=== PATIENT | female | born 1955 | race Caucasian/White ===

== ENCOUNTER → 2018-03-06 11:21 | Outpatient (CLI) | payer OTHER, SELFPAY ==
--- NOTE | 2018-03-06 11:25 | DI.RAD.S_ITS ---
PROCEDURE: XR CHEST 2V INDICATIONS: 62 year-old female with dyspnea for one month. TECHNIQUE: 2 views of the chest were acquired. COMPARISON: [facility], CR, CHEST 2 VIEW, 09/12/2013, 10:53. [facility], CR, CHEST 1VW (PORTABLE), 03/02/2012, 13:17. [facility], CR, CHEST 2 VIEW, 01/05/2011, 12:30. FINDINGS: Surgical changes and devices: Patient is status post interval resection of right midlung mass, with resection kell present. Cholecystectomy clips are again noted. Lungs and pleura: No pleural effusions or pneumothorax. Lungs are clear. Mediastinum: Mediastinal contours are normal. Heart size is normal. Bones and chest wall: No suspicious bony abnormalities. Lower thoracic spine dextroscoliosis is again noted. Soft tissues appear unremarkable. IMPRESSION: No acute cardiopulmonary disease, status post interval resection of right midlung mass. Dictated by: Meng Rios M.D. on 03/06/2018 at 12:24 Approved by: Meng Rios M.D. on 03/06/2018 at 12:26
[2018-03-06 12:38] LABS: Add Manual Diff / Slide Review NO; Basophils Percent Auto 0.4 % (0-2); Eosinophils Percent Auto 1.1 % (2-4); Hematocrit 35.5 % (36-46); Hemoglobin 12.1 g/dL (12.0-16.0); Lymphocytes Percent Auto 28.1 % (25-40); Mean Corpuscular Hemoglobin 30.8 PG (26-34); Mean Corpuscular Volume 90.5 fL (80-100); Monocytes Percent Auto 7.6 % (3-14); Neutrophils Absolute Auto 4200 /uL (3000-5900); Neutrophils Percent Auto 62.8 % (50-75); Platelet Count 190 X10^3/uL (150-400); Red Blood Cell Count 3.92 X10^6/uL (4.0-5.2); Red Cell Distribution Width 13.6 % (11.6-14.8); White Blood Cell Count 6.6 X10^3/uL (4.5-11.0)
[2018-03-06 12:52] LABS: D Dimer < 200 ng/mL (<230)
[2018-03-06 12:57] LABS: Alanine Aminotransferase 35 IU/L (9-52); Albumin 4.2 g/dL (3.5-5.0); Albumin Globulin Ratio 1.3 (1.0-2.8); Alkaline Phosphatase 83 U/L (38-126); Aspartate Aminotransferase 21 IU/L (14-36); BUN Creatinine Ratio 15.6 (6-22); Bilirubin Total 0.5 mg/dL (0.2-1.3); Blood Urea Nitrogen 14 mg/dL (7-17); Carbon Dioxide 26 mmol/L (22-32); Chloride 105 mmol/L (98-107); Estimated Glomerular Filt Rate > 60.0 mL/min (>60); Globulin 3.2 g/dL (1.7-4.1); Glucose 100 mg/dL (80-110); HEMOLYSIS < 15 (0-50); Potassium 4.2 mmol/L (3.4-5.1); Sodium 142 mmol/L (137-145); Total Protein 7.4 g/dL (6.3-8.2)
[2018-03-06 13:30] LABS: Thyroid Stimulating Hormone 0.56 uIU/mL (0.47-4.68)
== END ==
PROVIDERS: PCP Internal Medicine; Visit Provider Internal Medicine
DX: Z98.890 Other specified postprocedural states (principal); R06.00 Dyspnea, unspecified
CPT/HCPCS: 36415; 71046; 80053; 83880; 84443; 85025; 85379

== ENCOUNTER → 2018-03-13 12:36 | Outpatient (CLI) | payer OTHER, SELFPAY ==
--- NOTE | 2018-03-13 12:38 | DI.ECHO.S_ITS ---
[facility] +---------+ : : [address] : : [place], [place] : : : : [id number] : : : : Phone: [phone]+ Echocardiogram Report + + :Name: IDANIA HORTON Study Date: 03/13/2018 Height: 68 in : :[facility] Exam Location: [facility] Weight: 170 lb : : Gender: Female BSA: 1.9 m2 : :: 1955 Age: 62 yrs BP: 140/80 mmHg: :Reason For Study: Dyspnea : : Performed By: Catia Page : :Referring: ARNOLDO DENNIS : + + Interpretation Summary Left ventricular systolic function is borderline reduced with the ejection fraction visually estimated to be 45-55% with considerable [id number] variability because of the rapid atrial fibrillation but no obvious focal wall motion abnormalities. Systolic function appears slightly lower compared to the previous study. The left ventricle is normal in size. The right ventricle is normal size and right ventricular systolic function is at the lower limits of normal and appears slightly less dynamic compared to the previous study. The right ventricular systolic pressure is estimated at 25 mmHg assuming a right atrial pressure of 3 mm Hg. Both atria are severely dilated and both have significantly increased in size since the prior echo exam. There is mild to moderate mitral regurgitation and moderate tricuspid regurgitation. Both appear more prominent compared to the previous study. The aortic arch is at the upper limits of normal in size. The patient was in atrial fibrillation with heart rates between 84-136 bpm during the exam, generally at the higher end of this range, suggesting inadequate heart rate control. This is new compared to the previous study. Procedure: A two-dimensional transthoracic echocardiogram with color flow and Doppler was performed. The study quality was technically adequate. Prior available with images only on 12/14/2006. The patient was in atrial fibrillation with heart rates between 84-136 bpm during the exam. Left Ventricle: The left ventricle is normal in size. Left ventricular wall thickness is normal. Left ventricular systolic function is borderline reduced. Left ventricular ejection fraction is estimated to be 45-55%. With considerable [id number]-pq-[id number] variability because of the rapid atrial fibrillation. There are no focal wall motion abnormalities. Systolic function appears slightly lower compared to the previous study. Diastolic function could not be accurately assessed due to atrial fibrillation. Right Ventricle: The right ventricle is normal size. Right ventricular systolic function is at the lower limits of normal. This is slightly less dynamic compared to the previous study. Atria: Both atria are severely dilated. Both atria have significantly increased in size since the prior echo exam. There is no Doppler evidence for an interatrial shunt. Mitral Valve: The mitral valve is normal in structure and function. There is mild to moderate mitral regurgitation. This is more prominent compared to the previous study. Aortic Valve: The aortic valve is trileaflet. The aortic valve opens well. No aortic regurgitation is present. Tricuspid Valve: The tricuspid valve is normal in structure and function. There is moderate tricuspid regurgitation. This is more prominent compared to the previous study. The right ventricular systolic pressure is estimated at 25 mmHg assuming a right atrial pressure of 3 mm Hg. Pulmonic Valve: The pulmonic valve is not well visualized. There is a trace or physiologic amount of pulmonic regurgitation. Great Vessels: The aortic root is normal size. The ascending aorta is normal in size. The aortic arch is at the upper limits of normal in size. The pulmonary artery is not well visualized, but is probably normal size. The IVC is of normal diameter and collapses greater than 50% with a sniff. This suggests a low right atrial pressure of 3 mm Hg. Pericardium/ Pleura There is no pericardial effusion. There is no pleural effusion. MMode/2D Measurements & Calculations LVIDd: 5.4 cm LVOT diam: 2.1 cm LVIDs: 4.2 cm Ao root diam: 3.1 cm FS: 21.8 % asc Aorta Diam: 3.0 cm EPSS: 0.84 cm Ao Arch Diam (Prox Trans): 3.0 cm IVSd: 0.79 cm LVPWd: 0.59 cm LV pineda. diameter/BSA (cm/m^2): 2.8 LV sys. diameter/BSA (cm/m^2): 2.2 LA A2 area: 37.0 cm2 RA long axis: 6.6 cm LA A4 area: 30.5 cm2 RA area: 26.7 cm2 LA length (vol): 7.5 cm RA vol: 92.1 ml LA vol: 127.7 ml RA : 48.3 ml/m2 LA vol index: 67.0 ml/m2 IVC diam: 2.0 cm RVD1 (basal): 3.8 cm TAPSE: 2.2 cm Doppler Measurements & Calculations Ao V2 max: 106.3 cm/sec LVOT Max Duke: 75.6 cm/sec Ao V2 mean: 73.6 cm/sec LV V1 max P.3 mmHg Ao max P.5 mmHg LV V1 VTI: 12.2 cm Ao mean P.4 mmHg JJ(I,D): 2.3 cm2 Ao V2 VTI: 18.2 cm JJ(V,D): 2.5 cm2 sev ratio: 0.67 JJ indexed to BSA (cm^2/m^2): 1.2 MV E max duke: 83.9 cm/sec TR max duke: 234.6 cm/sec Lat Peak E' Duke: 12.2 cm/sec TR max P.1 mmHg E/E' lat: 6.9 PA V2 max: 56.7 cm/sec MV P1/2t: 28.6 msec PA V2 mean: 37.2 cm/sec PA mean P.63 mmHg PA Accel Time: 0.13 sec MV P1/2t max duke: 84.9 cm/sec MVA(P1/2t): 7.7 cm2 Reading Physician:RENNY
== END ==
PROVIDERS: PCP Internal Medicine; Visit Provider Internal Medicine
DX: R06.00 Dyspnea, unspecified (principal)
CPT/HCPCS: 93306

== ENCOUNTER → 2018-03-30 14:17 | Outpatient (CLI) | payer OTHER, SELFPAY ==
[2018-03-30 17:34] LABS: Prothrombin Time 11.4 SECONDS (10.1-12.7)
== END ==
PROVIDERS: PCP Internal Medicine; Visit Provider Internal Medicine
DX: Z51.81 Encounter for therapeutic drug level monitoring (principal); Z79.01 Long term (current) use of anticoagulants
CPT/HCPCS: 36415; 85610

== ENCOUNTER → 2018-05-23 09:19 | Outpatient (CLI) | payer OTHER, SELFPAY ==
--- NOTE | 2018-06-08 10:08 | P.HOLT.S_ITS ---
Adult And Pediatric Neurologist Report Referral & Results Date Patient Seen: 05/23/18 Requesting provider: Danyel Kate Indication: Atrial fibrillation Duration of monitoring (days): 3 Diary information: There was 1 patient diary entry associated with atrial fibrillation and PVCs There is 1 triggered events associated with atrial fibrillation and PVCs Data: Patient was in atrial fibrillation for the duration of the study Minimum heart rate was 45 beats per minute at 11:20 on 05/25/2018 Maximum heart rate was 179 beats per minute at 15:09 on 05/23/2018 Less than 1% of identified beats were PVCs or ventricular ectopic in origin Impression: Patient with persistent atrial fibrillation. Overall rate control appears to be adequate with a pattern of increased heart rate in the late afternoon question related to exercise. Overall heart rates average between 60 and 120 beats per minute Clinical correlation suggested
== END ==
PROVIDERS: PCP Internal Medicine; Visit Provider Internal Medicine
DX: I48.91 Unspecified atrial fibrillation (principal)
CPT/HCPCS: 0296T; 0298T

== ENCOUNTER → 2018-09-25 11:56 | Outpatient (CLI) | payer OTHER, SELFPAY ==
[2018-09-25 13:16] LABS: Add Manual Diff / Slide Review NO; Basophils Absolute Auto 0 /uL (0-100); Basophils Percent Auto 0.2 % (0-2); Eosinophils Absolute Auto 0 /uL (0-450); Eosinophils Percent Auto 0.6 % (2-4); Hemoglobin 13.2 g/dL (12.0-16.0); Lymphocytes Absolute Auto 2200 /uL (1100-4500); Lymphocytes Percent Auto 32.5 % (25-40); Mean Corpuscular Volume 91.2 fL (80-100); Monocytes Absolute Auto 400 /uL (0-900); Monocytes Percent Auto 6.2 % (3-14); Neutrophils Absolute Auto 4200 /uL (1500-7000); Neutrophils Percent Auto 60.5 % (50-75); Platelet Count 173 X10^3/uL (150-400); Red Blood Cell Count 4.38 X10^6/uL (4.0-5.2); Red Cell Distribution Width 13.3 % (11.6-14.8); White Blood Cell Count 6.9 X10^3/uL (4.5-11.0)
[2018-09-25 13:24] LABS: Alanine Aminotransferase 35 IU/L (9-52); Albumin 4.5 g/dL (3.5-5.0); Albumin Globulin Ratio 1.5 (1.0-2.8); Alkaline Phosphatase 73 U/L (38-126); Aspartate Aminotransferase 21 IU/L (14-36); Bilirubin Total 0.5 mg/dL (0.2-1.3); Bilirubin Unconjugated 0.4 mg/dL (0.0-1.1); Creatine Kinase 41 U/L (30-135); Gamma Glutamyl Transpeptidase 23 U/L (12-43); HEMOLYSIS < 15 (0-50); Magnesium 1.8 mg/dL (1.6-2.3); Total Protein 7.5 g/dL (6.3-8.2)
[2018-09-25 13:35] LABS: B Type Natriuretic Peptide 417 (<100)
[2018-09-25 14:13] LABS: Vitamin B12 837 pg/mL (239-931)
[2018-09-25 14:58] LABS: Free T4, Direct Thyroxine 1.36 ng/dL (0.78-2.19)
[2018-09-25 15:12] LABS: Thyroid Stimulating Hormone 0.63 uIU/mL (0.47-4.68)
[2018-09-25 15:19] LABS: Vitamin D 25 Hydroxy (D3) 50.9 ng/mL (30.0-100.0)
== END ==
PROVIDERS: PCP Student in an Organized Health Care Education/Training Program; Visit Provider Student in an Organized Health Care Education/Training Program
DX: M62.81 Muscle weakness (generalized) (principal); E55.9 Vitamin D deficiency, unspecified; R53.83 Other fatigue; R10.9 Unspecified abdominal pain; M79.10 Myalgia, unspecified site
CPT/HCPCS: 36415; 80076; 82306; 82550; 82607; 82977; 83735; 83880; 84439; 84443; 85025

== ENCOUNTER → 2018-11-14 11:36 | Outpatient (CLI) | payer OTHER, SELFPAY ==
--- NOTE | 2018-11-14 | DI.MG.S_ITS ---
BILATERAL DIGITAL SCREENING MAMMOGRAM 3D/2D WITH CAD: 11/14/2018 CLINICAL: Routine screening. Family history of breast cancer. Comparison is made to exams dated: 11/27/2017 mammogram, 10/30/2017 mammogram, and 10/17/2017 mammogram - [facility]. The tissue of both breasts is heterogeneously dense. This may lower the sensitivity of mammography. Current study was also evaluated with a Computer Aided Detection (CAD) system. There is a benign biopsy clip in the right breast. No significant masses, calcifications, or other findings are seen in either breast. There has been no significant interval change. IMPRESSION: NEGATIVE There is no mammographic evidence of malignancy. A 1 year screening mammogram is recommended. This exam was interpreted at Station ID: [id number]. NOTE: For mammograms, a report in lay terms will be sent to the patient. Approximately 15% of breast malignancies will not be visualized mammographically. In the management of a palpable breast mass, a negative mammogram must not discourage biopsy of a clinically suspicious lesion. Electronically Signed By: Brandon barton/nadeem:11/14/2018 17:33:07 letter sent: Normal Exam ACR BI-RADS Category 1: Negative [id number]
== END ==
PROVIDERS: PCP Student in an Organized Health Care Education/Training Program; Visit Provider Student in an Organized Health Care Education/Training Program
DX: Z12.31 Encounter for screening mammogram for malignant neoplasm of breast (principal); Z80.3 Family history of malignant neoplasm of breast
CPT/HCPCS: 77063; 77067

== ENCOUNTER → 2019-02-11 11:18 | Outpatient (CLI) | payer OTHER, SELFPAY ==
[2019-02-11 13:00] LABS: BUN Creatinine Ratio 13.3 (6-22); Blood Urea Nitrogen 12 mg/dL (7-17); Calcium 9.3 mg/dL (8.4-10.2); Carbon Dioxide 30 mmol/L (22-32); Chloride 104 mmol/L (98-107); Estimated Glomerular Filt Rate > 60.0 mL/min (>60); Glucose 110 mg/dL (80-110); HEMOLYSIS < 15 (0-50); Potassium 4.5 mmol/L (3.4-5.1); Sodium 140 mmol/L (137-145)
[2019-02-11 13:08] LABS: Digoxin 0.9 ng/mL (0.8-2.0)
== END ==
PROVIDERS: PCP Student in an Organized Health Care Education/Training Program; Visit Provider Internal Medicine Cardiovascular Disease
DX: I48.1 Persistent atrial fibrillation (principal)
CPT/HCPCS: 36415; 80048; 80162

== ENCOUNTER → 2019-06-27 19:07 | Outpatient (CLI) | payer OTHER, SELFPAY | PROVIDERS: PCP Student in an Organized Health Care Education/Training Program; Visit Provider Student in an Organized Health Care Education/Training Program | DX: S39.92XA Unspecified injury of lower back, initial encounter (principal); M79.10 Myalgia, unspecified site; Z53.9 Procedure and treatment not carried out, unspecified reason ==

== ENCOUNTER → 2019-07-05 11:46 | Outpatient (CLI) | payer OTHER, SELFPAY ==
[2019-07-05 12:17] LABS: Hematocrit 38.1 % (36-46); Mean Corpuscular HGB Conc 34.2 % (30-36); Mean Corpuscular Hemoglobin 31.2 PG (26-34); Mean Corpuscular Volume 91.4 fL (80-100); Platelet Count 184 X10^3/uL (150-400); Red Blood Cell Count 4.16 X10^6/uL (4.0-5.2); Red Cell Distribution Width 12.9 % (11.6-14.8)
[2019-07-05 12:33] LABS: BUN Creatinine Ratio 14.5 (6-22); Blood Urea Nitrogen 16 mg/dL (7-17); Calcium 9.5 mg/dL (8.4-10.2); Carbon Dioxide 28 mmol/L (22-32); Chloride 103 mmol/L (98-107); Creatine Kinase 63 U/L (30-135); Estimated Glomerular Filt Rate 49.8 mL/min (>60); Glucose 95 mg/dL (80-110); HEMOLYSIS < 15 (0-50); Magnesium 1.9 mg/dL (1.6-2.3); Potassium 4.1 mmol/L (3.4-5.1); Sodium 141 mmol/L (137-145)
[2019-07-05 12:34] LABS: C-Reactive Protein Quant < 0.5 mg/dL (<1.0); Rheumatoid Factor < 8.6 IU/mL (<12.0)
[2019-07-05 13:06] LABS: Erythrocyte Sedimentation Rate 18 MM/HR (0-20)
[2019-07-05 13:14] LABS: Free T3, Triiodothyronine Free 3.25 pg/mL (2.77-5.27); Free T4, Direct Thyroxine 1.39 ng/dL (0.78-2.19)
[2019-07-05 13:28] LABS: Thyroid Stimulating Hormone 1.09 uIU/mL (0.47-4.68)
[2019-07-09 10:46] LABS: CCP Antibody (IgG) < 16 Units (< 20)
[2019-07-09 16:39] LABS: ANA Screen, IFA POSITIVE (NEGATIVE)
== END ==
PROVIDERS: PCP Student in an Organized Health Care Education/Training Program; Visit Provider Student in an Organized Health Care Education/Training Program
DX: E03.9 Hypothyroidism, unspecified (principal); E88.01 Alpha-1-antitrypsin deficiency; I10 Essential (primary) hypertension; M79.10 Myalgia, unspecified site; R20.2 Paresthesia of skin
CPT/HCPCS: 36415; 80048; 82550; 83735; 84439; 84443; 84481; 85027; 85651; 86038; 86140; 86200; 86430

== ENCOUNTER → 2019-07-19 13:53 | Outpatient (CLI) | payer OTHER, SELFPAY ==
[2019-07-19 15:37] LABS: Alanine Aminotransferase 22 IU/L (<35); Albumin 4.3 g/dL (3.5-5.0); Albumin Globulin Ratio 1.6 (1.0-2.8); Alkaline Phosphatase 106 U/L (38-126); Aspartate Aminotransferase 24 IU/L (14-36); BUN Creatinine Ratio 16.3 (6-22); Bilirubin Total 0.5 mg/dL (0.2-1.3); Blood Urea Nitrogen 13 mg/dL (7-17); Calcium 9.6 mg/dL (8.4-10.2); Carbon Dioxide 30 mmol/L (22-32); Chloride 103 mmol/L (98-107); Estimated Glomerular Filt Rate > 60.0 mL/min (>60); Globulin 2.7 g/dL (1.7-4.1); Glucose 96 mg/dL (80-110); HEMOLYSIS < 15 (0-50); Potassium 3.7 mmol/L (3.4-5.1); Sodium 140 mmol/L (137-145)
[2019-07-19 15:39] LABS: Digoxin 0.5 ng/mL (0.8-2.0)
== END ==
PROVIDERS: PCP Student in an Organized Health Care Education/Training Program; Visit Provider Internal Medicine Cardiovascular Disease
DX: I48.19 Other persistent atrial fibrillation (principal)
CPT/HCPCS: 36415; 80053; 80162

== ENCOUNTER → 2019-12-21 12:15 | Outpatient (CLI) | payer MEDICARE, OTHER, SELFPAY ==
[2019-12-21 12:57] LABS: Blood Urea Nitrogen 23 mg/dL (7-17); Carbon Dioxide 26 mmol/L (22-32); Chloride 102 mmol/L (98-107); Estimated Glomerular Filt Rate 55.6 mL/min (>60); Glucose 118 mg/dL (80-110); HEMOLYSIS < 15 (0-50); Sodium 138 mmol/L (137-145)
== END ==
PROVIDERS: PCP Student in an Organized Health Care Education/Training Program; Referring Provider Hospitalist; Visit Provider Hospitalist
DX: I10 Essential (primary) hypertension (principal)
CPT/HCPCS: 36415; 80048

== ENCOUNTER → 2020-02-18 12:45 | Outpatient (CLI) | payer MEDICARE, OTHER, SELFPAY ==
--- NOTE | 2020-02-18 12:48 | DI.RAD.S_ITS ---
PROCEDURE: FL BARIUM SWALLOW INDICATIONS: esophageal dysphagia COMPARISON: None. FINDINGS: Function: There is decreased esophageal peristalsis. Delayed esophageal clearance No elicited gastroesophageal reflux. There is normal transit of a calibrated barium tablet through the esophagus into the stomach. Morphology: Air-contrast images demonstrate normal mucosal morphology. Single contrast views show no esophageal strictures, extrinsic mass effects, or diverticula. Limited images of the stomach demonstrate normal appearance. IMPRESSION: Esophageal dysmotility Dictated by: Deejay Burkett M.D. on 02/18/2020 at 14:21 Approved by: Deejay Burkett M.D. on 02/18/2020 at 14:31
== END ==
PROVIDERS: PCP Student in an Organized Health Care Education/Training Program; Referring Provider Student in an Organized Health Care Education/Training Program; Visit Provider Student in an Organized Health Care Education/Training Program
DX: R13.10 Dysphagia, unspecified (principal); K22.4 Dyskinesia of esophagus
CPT/HCPCS: 74220

== ENCOUNTER → 2020-04-07 12:26 | Outpatient (CLI) | payer MEDICARE, OTHER, SELFPAY ==
[2020-04-07 13:23] LABS: Blood Urea Nitrogen 18 mg/dL (7-17); Calcium 9.9 mg/dL (8.4-10.2); Carbon Dioxide 31 mmol/L (22-32); Chloride 99 mmol/L (98-107); Estimated Glomerular Filt Rate > 60.0 mL/min (>60); Glucose 100 mg/dL (80-110); HEMOLYSIS < 15 (0-50); Potassium 3.2 mmol/L (3.4-5.1); Sodium 137 mmol/L (137-145)
== END ==
PROVIDERS: PCP Student in an Organized Health Care Education/Training Program; Referring Provider Hospitalist; Visit Provider Hospitalist
DX: I10 Essential (primary) hypertension (principal)
CPT/HCPCS: 36415; 80048

== ENCOUNTER → 2020-05-23 11:17 | Outpatient (CLI) | payer MEDICARE, OTHER, SELFPAY ==
[2020-05-23 12:29] LABS: BUN Creatinine Ratio 20.2 (6-22); Blood Urea Nitrogen 20 mg/dL (7-17); Calcium 9.6 mg/dL (8.4-10.2); Carbon Dioxide 31 mmol/L (22-32); Chloride 102 mmol/L (98-107); Estimated Glomerular Filt Rate 56.3 mL/min (>60); Glucose 91 mg/dL (80-110); HEMOLYSIS < 15 (0-50); Potassium 3.8 mmol/L (3.4-5.1); Sodium 141 mmol/L (137-145)
== END ==
PROVIDERS: PCP Student in an Organized Health Care Education/Training Program; Referring Provider Internal Medicine Cardiovascular Disease; Visit Provider Internal Medicine Cardiovascular Disease
DX: I48.19 Other persistent atrial fibrillation (principal)
CPT/HCPCS: 36415; 80048

== ENCOUNTER → 2020-05-28 15:58 | Outpatient (CLI) | payer MEDICARE, OTHER, SELFPAY ==
--- NOTE | 2020-05-28 | DI.ECHO.S_ITS ---
[facility] +---------+ [facility] +---------+ : : [address] : : : : [place] : : : : [id number] : : : : Phone: [phone] +---------+ Echocardiogram Report + + :Name: IDANIA HORTON Study Date: 05/28/2020 Height: 67 in : :[facility] Weight: 153 lb : : Gender: Female BSA: 1.8 m2 : :: 1955 Age: 64 yrs BP: 122/95 mmHg: :Reason For Study: Atrial Fibrillation : :Ordering Physician: LEV, : :BONNIE Performed By: Kaleigh Smith : :Referring: BONNIE OHARA : + + Interpretation Summary The patient was in atrial fibrillation with heart rates between 134-167 bpm during the exam. The left ventricle is normal in size. The ejection fraction is estimated to be 25-30%. Left ventricular function has significantly worsened compared to the previous exam. There is severe global hypokinesis of the left ventricle. There is a significant dyssynchronous contraction pattern, consistent with a conduction abnormality. The right ventricle is mildly dilated. Right ventricular systolic function is mildly reduced. Both atria are severely dilated. Both atria have remained unchanged in size since the prior echo exam. There is moderate mitral regurgitation. The tricuspid annulus is dilated. There is severe tricuspid regurgitation. Compared to the prior echo exam, there has been an increase in TR severity. The right ventricular systolic pressure is estimated to be at least 41 mmHg based on an estimated right atrial pressure of 8 mm Hg. Compared to the prior echo exam, there has been an increase in the severity of pulmonary hypertension. Findings were reported to [facility] ER physician. Procedure: A two-dimensional transthoracic echocardiogram with color flow and Doppler was performed in limited views only. The study quality was technically good. Comparison is made with the echocardiogram of 03/13/2018. The patient was in atrial fibrillation with heart rates between 134-167 bpm during the exam. Echo was changed from complete to limited due to Afib w/ RVR and patient was taken to emergency room per Dr. Matute. Left Ventricle: The left ventricle is normal in size. The left ventricle is normal in size and wall thickness. There is no thrombus. The ejection fraction is estimated to be 25-30%. Left ventricular function has significantly worsened compared to the previous exam. There is severe global hypokinesis of the left ventricle. There is a significant dyssynchronous contraction pattern, consistent with a conduction abnormality. Diastolic function could not be accurately assessed due to atrial fibrillation. Right Ventricle: The right ventricle is mildly dilated. Right ventricular systolic function is mildly reduced. Atria: Both atria are severely dilated. Both atria have remained unchanged in size since the prior echo exam. Mitral Valve: The mitral valve leaflets appear mildly thickened, but open well. There is moderate mitral regurgitation. Aortic Valve: The aortic valve is trileaflet. The aortic valve opens well. There is no aortic valve stenosis. Tricuspid Valve: The tricuspid valve leaflets are thin and pliable. The tricuspid annulus is dilated. There is severe tricuspid regurgitation. The right ventricular systolic pressure is estimated to be at least 41 mmHg based on an estimated right atrial pressure of 8 mm Hg. Compared to the prior echo exam, there has been an increase in TR severity. Compared to the prior echo exam, there has been an increase in the severity of pulmonary hypertension. Pulmonic Valve: The pulmonic valve is not well visualized. Great Vessels: The IVC is of normal diameter and collapses less than 50% with a sniff. This suggests a right atrial pressure of 8 mm Hg. Pericardium/ Pleura There is no pericardial effusion. There is no pleural effusion. MMode/2D Measurements & Calculations LVIDd: 4.8 cm LA A2 area: 34.3 cm2 LVIDs: 3.6 cm LA A4 area: 33.6 cm2 FS: 25.0 % LA length (vol): 7.3 cm LVPWd: 4.7 cm LA vol: 134.5 ml LV pineda. diameter/BSA (cm/m^2): 2.6 LA vol index: 74.5 ml/m2 LV sys. diameter/BSA (cm/m^2): 2.0 RA long axis: 6.8 cm RVD1 (basal): 4.1 cm RA area: 31.8 cm2 TAPSE: 1.5 cm RA vol: 125.8 ml RA : 69.7 ml/m2 IVC diam: 1.7 cm Doppler Measurements & Calculations Ao V2 max: 86.2 cm/sec LVOT Max Duke: 63.6 cm/sec Ao V2 mean: 54.0 cm/sec LV V1 max P.6 mmHg Ao max P.0 mmHg LV V1 VTI: 8.9 cm Ao mean P.4 mmHg sev ratio: 0.87 Ao V2 VTI: 10.3 cm TR max duke: 287.0 cm/sec TR max P.9 mmHg Reading Physician:07:40 PM
== END ==
PROVIDERS: PCP Student in an Organized Health Care Education/Training Program; Referring Provider Hospitalist; Visit Provider Hospitalist
DX: I48.19 Other persistent atrial fibrillation (principal); I08.1 Rheumatic disorders of both mitral and tricuspid valves; I27.20 Pulmonary hypertension, unspecified
CPT/HCPCS: 93307

== ENCOUNTER 2020-05-28 16:35 | Emergency (ER) | payer MEDICARE, OTHER, SELFPAY ==
[2020-05-28 16:40] VITALS: BP 152/111; PULSE 164; RESP 15; TEMP 36.4; O2SAT 98; BMI 23.9
--- NOTE | 2020-05-28 17:04 | DI.RAD.S_ITS ---
PROCEDURE: XR CHEST 1V INDICATIONS: chest pain TECHNIQUE: One view of the chest was acquired. COMPARISON: [facility], , CHEST 2 VIEW, 09/12/2013, 10:53. [facility], , XR CHEST 2V, 03/06/2018, 11:16. FINDINGS: Surgical changes and devices: A right midlung staple line is seen. Lungs and pleura: On this semiupright portable chest examination, no large pneumothorax or large pleural effusions are seen. No focal infiltrates are seen. Mediastinum: The cardiac contours are mildly enlarged. The aorta demonstrates calcification and tortuosity. Bones and chest wall: No suspicious bony lesions. Moderate dextroconvex scoliosis is seen. Age-appropriate bony degenerative changes are seen. Overlying soft tissues appear unremarkable. IMPRESSION: Mild cardiomegaly. Prior right lung postoperative change. Moderate scoliosis. Dictated by: Charanjit Bay M.D. on 05/28/2020 at 16:36 Approved by: Charanjit Bay M.D. on 05/28/2020 at 16:37
[2020-05-28 17:12] LABS: Add Manual Diff / Slide Review NO; Basophils Absolute Auto 100 /uL (0-100); Basophils Percent Auto 0.6 % (0-2); Eosinophils Absolute Auto 100 /uL (0-450); Eosinophils Percent Auto 0.9 % (2-4); Hematocrit 40.4 % (36-46); Hemoglobin 13.9 g/dL (12.0-16.0); Lymphocytes Absolute Auto 2600 /uL (1100-4500); Lymphocytes Percent Auto 27.8 % (25-40); Mean Corpuscular HGB Conc 34.3 % (30-36); Mean Corpuscular Hemoglobin 30.8 PG (26-34); Mean Corpuscular Volume 89.7 fL (80-100); Monocytes Absolute Auto 700 /uL (0-900); Monocytes Percent Auto 7.2 % (3-14); Neutrophils Absolute Auto 6000 /uL (1500-7000); Neutrophils Percent Auto 63.5 % (50-75); Platelet Count 165 X10^3/uL (150-400); Red Cell Distribution Width 13.1 % (11.6-14.8); White Blood Cell Count 9.4 X10^3/uL (4.5-11.0)
--- NOTE | 2020-05-28 17:12 | PC.NURSE ---
during echo. pt was noticed to be in afib.[facility] evaluation specialist told pt to come to the er
[2020-05-28 17:16] LABS: INR 1.5 (0.9-1.3); Prothrombin Time 17.6 SECONDS (10.1-12.7)
[2020-05-28 17:19] LABS: PTT Partial Thromboplastin Tim 37 SECONDS (26.4-36.2)
[2020-05-28 17:20] LABS: Alanine Aminotransferase 38 IU/L (<35); Albumin 4.4 g/dL (3.5-5.0); Albumin Globulin Ratio 1.2 (1.0-2.8); Alkaline Phosphatase 148 U/L (38-126); Aspartate Aminotransferase 43 IU/L (14-36); BUN Creatinine Ratio 21.9 (6-22); Bilirubin Total 0.9 mg/dL (0.2-1.3); Blood Urea Nitrogen 23 mg/dL (7-17); Calcium 9.3 mg/dL (8.4-10.2); Carbon Dioxide 30 mmol/L (22-32); Chloride 99 mmol/L (98-107); Creatine Kinase 48 U/L (30-135); Estimated Glomerular Filt Rate 52.6 mL/min (>60); Globulin 3.7 g/dL (1.7-4.1); Glucose 108 mg/dL (80-110); HEMOLYSIS < 15 (0-50); Magnesium 2.1 mg/dL (1.6-2.3); Potassium 3.8 mmol/L (3.4-5.1); Sodium 136 mmol/L (137-145); Total Protein 8.1 g/dL (6.3-8.2)
--- NOTE | 2020-05-28 17:24 | ED_ITS ---
HPI - Arrhythmia/Palpitations General Chief Complaint: Arrhythmia/Palpitations Stated Complaint: AFIB with RVR Time Seen by Provider: 05/28/20 16:48 Source: patient Mode of arrival: Ambulatory Limitations: no limitations History of Present Illness HPI narrative: Patient is a 64-year-old female with history of atrial fibrillation on Eliquis and Coreg presenting in AFib with RVR. She was getting a routine echocardiogram when it they noticed her heart rate was elevated in the 160 she was immediately sent to the emergency department for evaluation. She is completely asymptomatic she denies any chest pain palpitations shortness of breath dizziness lightheadedness. She has multiple reactions to all medications including diltiazem verapamil, metoprolol, Lopressor digoxin and others she is only taking Coreg for her rate control. He is scheduled to see a new truck driver helper she was previously followed by Dr. Hernandez. MD complaint: rapid heart beat Duration: constant Arrhythmia history: atrial fibrillation Associated symptoms: denies other symptoms Related Data Home Medications Medication Instructions Recorded Confirmed Calcium/Vitamin D (#CALCIUM + D 1 tab PO Q DAY #0 04/22/11 02/13/20 600 MG-200 IU) multivitamin 1 cap PO DAILY 03/15/18 02/13/20 valacyclovir 500 mg tablet 500 mg PO BID PRN tab 05/02/19 02/13/20 chlorthalidone 25 mg tablet 12.5 mg PO DAILY tab 02/13/20 02/13/20 losartan 50 mg tablet 25 mg PO DAILY tab 02/13/20 02/13/20 carvedilol 12.5 mg tablet 12.5 mg PO BID 04/07/20 Previous Rx's Medication Instructions Recorded triamcinolone acetonide 0.1 % 1 applictn TOP BID #30 gram 05/02/19 topical cream zolpidem 10 mg tablet 10 mg PO HSP PRN #20 tab 06/27/19 apixaban 5 mg tablet 5 mg PO BID #60 tab 07/30/19 tramadol 50 mg tablet 100 mg PO BID PRN #75 tab 04/13/20 estradiol 0.5 mg tablet 0.5 mg PO QDAY #90 tab 05/27/20 fluticasone propionate 50 1 spray INTRANASAL BID PRN #18.2 05/27/20 mcg/actuation nasal ml MDD 1 spray twice daily spray,suspension levothyroxine 125 mcg tablet 125 mcg PO QDAY #90 tab 05/27/20 Allergies Allergy/AdvReac Type Severity Reaction Status Date / Time Iodine and Iodide Containing Allergy Intermediate SEAFOOD Verified 05/28/20 16:45 Produc CONTAINING [IODINE AND IODIDE IODINE CONTAINING PRODUC] hydrochlorothiazide Allergy Mild Verified 05/28/20 16:45 [From DYAZIDE] Iodinated Contrast Media Allergy Mild PER PT Verified 05/28/20 16:45 [IODINATED CONTRAST MEDIA - TOPICAL IV DYE] triamterene [From DYAZIDE] Allergy Mild Verified 05/28/20 16:45 amlodipine [AMLODIPINE] Allergy Unknown Verified 05/28/20 16:45 lisinopril [LISINOPRIL] Allergy Unknown Verified 05/28/20 16:45 Sulfa (Sulfonamide Allergy Unknown Verified 05/28/20 16:45 Antibiotics) alendronate sodium AdvReac Intermediate ACID REFLUX Verified 05/28/20 16:45 [ALENDRONATE SODIUM] escitalopram [From LEXAPRO] AdvReac Intermediate myalgias, Verified 05/28/20 16:45 excess sedation morphine [MORPHINE] AdvReac Intermediate DID NOT Verified 05/28/20 16:45 WORK FOR HER omeprazole [OMEPRAZOLE] AdvReac Intermediate DID NOT Verified 05/28/20 16:45 WORK FOR HER potassium [POTASSIUM] AdvReac Intermediate GAVE HER Verified 05/28/20 16:45 FLU LIKE SYMPTOMS theophylline [THEOPHYLLINE] AdvReac Intermediate UNCOMFORTABLE Verified 05/28/20 16:45 FEELING, HEART RACING raloxifene [RALOXIFENE] AdvReac Mild ACID REFLUX Verified 05/28/20 16:45 pantoprazole AdvReac muscle Verified 05/28/20 16:45 aches, chills, metallic taste Review of Systems Review of Systems Narrative: GENERAL: Denies chills, fatigue, malaise, fever, sweats, travel HEENT: Denies sinus pain, ear pain, sore throat, difficulty swallowing, neck pain RESPIRATORY: Denies dyspnea, cough, wheezing, hemoptysis, sputum. CARDIOVASCULAR: See HPI GASTROINTESTINAL: Denies nausea, vomiting, abdominal pain, diarrhea, constipation, melena. : Denies dysuria, frequency, incontinence, hematuria, urinary retention, flank pain. MUSCULOSKELETAL: Denies weakness, joint pain, or bony pain SKIN: No rash, no erythema, no pruritus NEUROLOGIC: Denies weakness, dizziness, headache, numbness, change in speech, confusion PSYCHIATRIC: No concerning psychosocial issues. 12 point review of systems is negative except for those stated above and HPI Patient History Medical History AAT ([id number]) deficiency (Chronic) Abnormal CXR (Resolved 1976) Anemia (Resolved 1974) Ankle pain (Chronic 2007) Anxiety (Chronic 1972) Asthma (Chronic 2012) Atrial fibrillation (Chronic 2006) Cataract (Resolved 2008) Chicken pox (Resolved 1956) Chronic back pain (Chronic 1979) Chronic cough (Chronic 2004) Chronic headaches (Chronic) Colon polyps (Resolved 2013) CTS (carpal tunnel syndrome) (Chronic 2003) Fibromyalgia (Chronic ~1989) Foot pain (Chronic 2007) Fractures (Resolved) GERD (gastroesophageal reflux disease) (Chronic 1999) Hayfever (Chronic) Hemorrhoids (Resolved 1975) Herpes (Chronic 1999) Hypertension (Chronic) Hypothyroidism (Chronic 2003) Low vitamin B12 level (Chronic ~1974) Malignant tumor, spindle cell type (Resolved 2014) Measles (Resolved) Mumps (Resolved) Osteoarthritis (Chronic 1999) Peripheral neuropathy (Chronic 2009) Plantar warts (Resolved) Recurrent sinusitis (Chronic) RLS (restless legs syndrome) (Chronic 1999) Rosacea (Chronic 2002) Scoliosis (Chronic 1972) Shoulder pain (Chronic 1989) Urinary incontinence (Chronic 2012) Surgical History Anesthesia (Resolved) History of cataract removal with insertion of prosthetic lens (Resolved 2008) History of radial keratotomy (Resolved 1984) S/P foot surgery, left (Resolved 2007) S/P foot surgery, left (Resolved 2010) Status post appendectomy (Resolved 1987) Status post hysterectomy (Resolved 1992) Status post thoracotomy (Resolved 2014) Family History Brother Emphysema lung Lung cancer Father Emphysema lung Heart disease Sister Heart disease Hypertension Emphysema lung Respiratory arrest Mother Stroke Social History Smoking Status: Former smoker Smoking Status: Former smoker alcohol intake frequency: 0-2 drinks per day Substance Use Type: does not use Exam Initial Vital Signs Initial Vital Signs: Vital Signs Temperature 97.5 F L 05/28/20 16:40 Pulse Rate 164 H 05/28/20 16:40 Respiratory Rate 15 05/28/20 16:40 Blood Pressure 152/111 H 05/28/20 16:40 Pulse Oximetry 98 05/28/20 16:40 GENERAL: Alert well-appearing female and in no acute distress. HEENT: Head atraumatic,EOMI, pupils reactive, face symmetric, moist mucous membranes CARDIOVASCULAR: Tachycardic irregularly irregular RESPIRATORY: Breath sounds equal bilaterally, no wheezes rales or rhonchi. ABDOMEN: Soft, nontender. Normoactive bowel sounds all 4 quadrants. No guarding or rebound. EXTREMITIES: Normal range of motion, no clubbing or edema. Neurovascularly intact NEUROLOGICAL: Alert and oriented x4.Normal gait and speech. Cranial nerves II through XII grossly intact. SKIN: Warm, dry, no laceration, no petechiae, no rashes or lesions. Course Orders Ordered: ED Orders 05/28/20 17:00 Complete Blood Count AUTO DIFF Stat Comprehensive Metabolic Panel Stat Magnesium Stat Partial Thromboplastin Time Stat Prothrombin Time INR Stat Troponin & CK Cardiac Panel Stat 05/28/20 17:04 XR chest 1V Stat Discontinued Medications Carvedilol (Coreg) 25 mg PO NOW ONE Stop: 05/28/20 17:34 Last Admin: 05/28/20 17:43 Dose: 25 mg Documented by: EVERARDO Diltiazem HCl (Cardizem) 10 mg IV NOW ONE Stop: 05/28/20 18:38 Last Admin: 05/28/20 18:49 Dose: 10 mg Documented by: EVERARDO Sodium Chloride (Normal Saline 0.9%) 1,000 mls @ 150 mls/hr IV CONT JASON Last Infusion: 05/28/20 19:29 Dose: 0 mls/hr Documented by: Admin: 05/28/20 17:32 Dose: 150 mls/hr Documented by: EVERARDO Vital Signs Vital signs: Vital Signs - 8 hr 05/28/20 16:40 05/28/20 17:41 05/28/20 17:43 Temperature 97.5 F L Pulse Rate 164 H 156 H 155 H Respiratory Rate 15 17 Blood Pressure 152/111 H 155/115 H 171/98 H Pulse Oximetry 98 97 05/28/20 18:30 05/28/20 18:49 05/28/20 19:27 Temperature Pulse Rate 123 H 122 H 70 Respiratory Rate 20 16 Blood Pressure 127/80 127/80 126/75 Pulse Oximetry 99 98 MDM - Arrhythmia/Palpitations Lab Data Attestation: I reviewed the patient's lab results. Result diagrams: 05/28/20 17:00 05/28/20 17:00 Labs: Lab Results 05/28/20 05/28/20 05/28/20 Range/Units 17:00 17:00 17:00 WBC 9.4 (4.5-11.0) X10^3/uL RBC 4.50 (4.0-5.2) X10^6/uL Hgb 13.9 (12.0-16.0) g/dL Hct 40.4 (36-46) % MCV 89.7 (80-100) fL MCH 30.8 (26-34) PG MCHC 34.3 (30-36) % RDW 13.1 (11.6-14.8) % Plt Count 165 (150-400) X10^3/uL Neut % (Auto) 63.5 (50-75) % Lymph % (Auto) 27.8 (25-40) % Dickey % (Auto) 7.2 (3-14) % Eos % (Auto) 0.9 L (2-4) % Baso % (Auto) 0.6 (0-2) % Neut # (Auto) 6000 (1902-1056) /uL Lymph # (Auto) 2600 (1011-7133) /uL Dickey # (Auto) 700 (0-900) /uL Eos # (Auto) 100 (0-450) /uL Baso # (Auto) 100 (0-100) /uL PT 17.6 H (10.1-12.7) SECONDS INR 1.5 H (0.9-1.3) APTT 37 H (26.4-36.2) SECONDS Sodium 136 L (137-145) mmol/L Potassium 3.8 (3.4-5.1) mmol/L Chloride 99 (98-107) mmol/L Carbon Dioxide 30 (22-32) mmol/L BUN 23 H (7-17) mg/dL Creatinine 1.05 H (0.52-1.04) mg/dL Estimated GFR 52.6 L (>60) mL/min BUN/Creatinine Ratio 21.9 (6-22) Glucose 108 (80-110) mg/dL Calcium 9.3 (8.4-10.2) mg/dL Magnesium (1.6-2.3) mg/dL Total Bilirubin 0.9 (0.2-1.3) mg/dL AST 43 H (14-36) IU/L ALT 38 H (<35) IU/L Alkaline Phosphatase 148 H (38-126) U/L Total Creatine Kinase (30-135) U/L CK-MB (CK-2) CK-MB (CK-2) Rel Index Troponin I (0.01-0.034) ng/mL Total Protein 8.1 (6.3-8.2) g/dL Albumin 4.4 (3.5-5.0) g/dL Globulin 3.7 (1.7-4.1) g/dL Albumin/Globulin Ratio 1.2 (1.0-2.8) 05/28/20 Range/Units 17:00 WBC (4.5-11.0) X10^3/uL RBC (4.0-5.2) X10^6/uL Hgb (12.0-16.0) g/dL Hct (36-46) % MCV (80-100) fL MCH (26-34) PG MCHC (30-36) % RDW (11.6-14.8) % Plt Count (150-400) X10^3/uL Neut % (Auto) (50-75) % Lymph % (Auto) (25-40) % Dickey % (Auto) (3-14) % Eos % (Auto) (2-4) % Baso % (Auto) (0-2) % Neut # (Auto) (7787-0251) /uL Lymph # (Auto) (1469-2395) /uL Dickey # (Auto) (0-900) /uL Eos # (Auto) (0-450) /uL Baso # (Auto) (0-100) /uL PT (10.1-12.7) SECONDS INR (0.9-1.3) APTT (26.4-36.2) SECONDS Sodium (137-145) mmol/L Potassium (3.4-5.1) mmol/L Chloride (98-107) mmol/L Carbon Dioxide (22-32) mmol/L BUN (7-17) mg/dL Creatinine (0.52-1.04) mg/dL Estimated GFR (>60) mL/min BUN/Creatinine Ratio (6-22) Glucose (80-110) mg/dL Calcium (8.4-10.2) mg/dL Magnesium 2.1 (1.6-2.3) mg/dL Total Bilirubin (0.2-1.3) mg/dL AST (14-36) IU/L ALT (<35) IU/L Alkaline Phosphatase (38-126) U/L Total Creatine Kinase 48 (30-135) U/L CK-MB (CK-2) TNP CK-MB (CK-2) Rel Index TNP Troponin I < 0.012 (0.01-0.034) ng/mL Total Protein (6.3-8.2) g/dL Albumin (3.5-5.0) g/dL Globulin (1.7-4.1) g/dL Albumin/Globulin Ratio (1.0-2.8) Imaging Data Chest x-ray: Radiologist's Impresson: PROCEDURE: XR CHEST 1V INDICATIONS: chest pain TECHNIQUE: One view of the chest was acquired. COMPARISON: [facility], , CHEST 2 VIEW, 09/12/2013, 10:53. [facility], , XR CHEST 2V, 03/06/2018, 11:16. FINDINGS: Surgical changes and devices: A right midlung staple line is seen. Lungs and pleura: On this semiupright portable chest examination, no large pneumothorax or large pleural effusions are seen. No focal infiltrates are seen. Mediastinum: The cardiac contours are mildly enlarged. The aorta demonstrates calcification and tortuosity. Bones and chest wall: No suspicious bony lesions. Moderate dextroconvex scoliosis is seen. Age-appropriate bony degenerative changes are seen. Overlying soft tissues appear unremarkable. IMPRESSION: Mild cardiomegaly. Prior right lung postoperative change. Moderate scoliosis. Dictated by: Charanjit Bay M.D. on 05/28/2020 at 16:36 Approved by: Charanjit Bay M.D. on 05/28/2020 at 16:37 ECG Data Attestation: I personally reviewed and interpreted this ECG as follows: Interpretation: Atrial fibrillation with RVR rate 151 MDM Narrative Medical decision making narrative: Patient is completely asymptomatic. She states that she can not take calcium channel blockers, beta-blockers digoxin so she is on Coreg. She actually states later that the pills after prolonged period of time is what caused her to have reactions. She is okay trying a small dose of Cardizem. Her echo results are not back yet. But 2 years ago she had EF of 45-55%. Her heart rate improved significantly with 1 dose of Cardizem she is given higher extra dose of Coreg of 25 mg. She remains asymptomatic. She states that she is able to monitor heart rate at home she has all the devices. She occasionally feels palpitations she has felt this off and on for the last 2 years. Her heart rate is generally below 100 but she feels a racing at times. She is supposed to have follow-up appointment with cardiology. This time she seems safe to discharge. Patient literally walked out the door and a few minutes after Dr. Matute cardiology called to let me know her EF is decreased to 20-25% in is extremely worried about her. He recommended she be transferred to where she can possibly have an ablation. I have called the patient and spoke with her myself recommended she return to the ER where she can be transferred to . She is going to go home and get things and possibly just a drive to hers [place]. Discharge Plan Departure Patient Disposition: Home Clinical Impression: Atrial fibrillation with rapid ventricular response Discharge Date/Time: 05/28/20 19:30 Activity Restrictions/Additional Instructions: *You have been diagnosed with atrial fibrillation *What to do: Please follow-up with your truck driver helper. He will likely need adjustments to your medication. Please check your heart rate at home if it is above [address] please return to the ED. you received 25 mg of carvedilol this evening. Take a recommended dose tomorrow *Continue to take medications as directed *Follow up with your primary care provider in 2-3 days *Return to ER if you should have elevated heart rate above 130 that is sustained. Chest pain, shortness of breath, dizziness lightheadedness or any new, worsening or concerning symptoms Prescriptions: No Action Calcium/Vitamin D (#CALCIUM + D 600 MG-200 IU) 1 tab PO Q DAY Qty: 0 RF: 0 apixaban 5 mg tablet 5 mg PO BID Qty: 60 RF: 11 losartan 50 mg tablet 25 mg PO DAILY RF: 0 carvedilol 12.5 mg tablet 12.5 mg PO BID RF: 0 tramadol 50 mg tablet 100 mg PO BID PRN (Reason: pain) Qty: 75 RF: 3 estradiol 0.5 mg tablet 0.5 mg PO QDAY Qty: 90 RF: 3 levothyroxine [Synthroid] 125 mcg tablet 125 mcg PO QDAY Qty: 90 RF: 3 fluticasone propionate 50 mcg/actuation spray,suspension 1 spray Intranasal BID MDD 1 spray twice daily PRN (Reason: nasal congestion) Qty: 18.2 RF: 11 valacyclovir 500 mg tablet 500 mg PO BID PRNRF: 0 triamcinolone acetonide 0.1 % cream 1 applictn TOP BID Qty: 30 RF: 0 multivitamin capsule 1 cap PO DAILY RF: 0 zolpidem [Ambien] 10 mg tablet 10 mg PO HSP PRN (Reason: insomnia) Qty: 20 RF: 5 chlorthalidone 25 mg tablet 12.5 mg PO DAILY RF: 0 Referrals: Mitesh Dick MD [Primary Care Provider] - Mukund Hernandez MD [Physician] -
[2020-05-28 17:32] LABS: Troponin I < 0.012 ng/mL (0.01-0.034)
[2020-05-28] MEDS: SODIUM CHLORIDE 0.9% 1,000 ML 150 ML IV (17:32)
[2020-05-28 17:41] VITALS: BP 155/115; PULSE 156; RESP 17; O2SAT 97
[2020-05-28 17:43] VITALS: BP 171/98; PULSE 155
[2020-05-28] MEDS: carvediloL 25 MG TABLET PO (17:43)
[2020-05-28 18:30] VITALS: BP 127/80; PULSE 123; RESP 20; O2SAT 99
[2020-05-28 18:49] VITALS: BP 127/80; PULSE 122
[2020-05-28] MEDS: dilTIAZem 5 MG/ML SDV 10 MG IV (18:49)
[2020-05-28 19:27] VITALS: BP 126/75; PULSE 70; RESP 16; O2SAT 98
== END 2020-05-28 19:30 | disposition home or self-care (01) ==
PROVIDERS: Emergency Provider Emergency Medicine; PCP Student in an Organized Health Care Education/Training Program
DX: I48.20 Chronic atrial fibrillation, unspecified (principal); I08.1 Rheumatic disorders of both mitral and tricuspid valves; I27.20 Pulmonary hypertension, unspecified; R07.9 Chest pain, unspecified; Z79.01 Long term (current) use of anticoagulants
CPT/HCPCS: 36415; 71045; 80053; 82550; 83735; 84484; 85025; 85610; 85730; 93005; 93010; 93307; 96361; 96374; 99284

== ENCOUNTER → 2020-06-15 12:20 | Outpatient (CLI) | payer MEDICARE, OTHER, SELFPAY ==
[2020-06-15 13:28] LABS: BUN Creatinine Ratio 16.4 (6-22); Blood Urea Nitrogen 18 mg/dL (7-17); Calcium 9.6 mg/dL (8.4-10.2); Carbon Dioxide 35 mmol/L (22-32); Chloride 102 mmol/L (98-107); Estimated Glomerular Filt Rate 49.8 mL/min (>60); Glucose 123 mg/dL (80-110); HEMOLYSIS < 15 (0-50); Potassium 4.2 mmol/L (3.4-5.1); Sodium 141 mmol/L (137-145)
== END ==
PROVIDERS: PCP Student in an Organized Health Care Education/Training Program; Referring Provider Internal Medicine Cardiovascular Disease; Visit Provider Internal Medicine Cardiovascular Disease
DX: I10 Essential (primary) hypertension (principal)
CPT/HCPCS: 36415; 80048

== ENCOUNTER → 2020-07-03 11:37 | Outpatient (CLI) | payer MEDICARE, OTHER, SELFPAY ==
[2020-07-03 12:56] LABS: HEMOLYSIS < 15 (0-50); NT-proBNP (BNP-Adult 18+) 2660 pg/mL (<125)
[2020-07-03 12:59] LABS: BUN Creatinine Ratio 17.3 (6-22); Blood Urea Nitrogen 18 mg/dL (7-17); Calcium 9.6 mg/dL (8.4-10.2); Carbon Dioxide 29 mmol/L (22-32); Chloride 104 mmol/L (98-107); Cholesterol 199 mg/dL (140-199); Glucose 129 mg/dL (80-110); HDL Cholesterol 58 mg/dL (40-60); LDL Cholesterol Calculated 121 mg/dL (<100); Magnesium 1.8 mg/dL (1.6-2.3); Potassium 4.6 mmol/L (3.4-5.1); Sodium 139 mmol/L (137-145); Triglycerides 102 mg/dL (35-150)
[2020-07-03 13:03] LABS: Digoxin 0.5 ng/mL (0.8-2.0)
[2020-07-03 13:05] LABS: Free T4, Direct Thyroxine 1.78 ng/dL (0.78-2.19)
[2020-07-03 13:18] LABS: Thyroid Stimulating Hormone 0.052 uIU/mL (0.47-4.68)
== END ==
PROVIDERS: PCP Student in an Organized Health Care Education/Training Program; Referring Provider Internal Medicine Cardiovascular Disease; Visit Provider Internal Medicine Cardiovascular Disease
DX: I48.21 Permanent atrial fibrillation (principal); I10 Essential (primary) hypertension; I50.22 Chronic systolic (congestive) heart failure
CPT/HCPCS: 36415; 80048; 80061; 80162; 83735; 83880; 84436; 84439; 84443

== ENCOUNTER → 2020-08-21 10:35 | Outpatient (CLI) | payer MEDICARE, OTHER, SELFPAY ==
[2020-08-21 12:06] LABS: Free T4, Direct Thyroxine 1.54 ng/dL (0.78-2.19)
[2020-08-21 12:20] LABS: Thyroid Stimulating Hormone 0.157 uIU/mL (0.47-4.68)
== END ==
PROVIDERS: PCP Student in an Organized Health Care Education/Training Program; Referring Provider Student in an Organized Health Care Education/Training Program; Visit Provider Student in an Organized Health Care Education/Training Program
DX: E03.9 Hypothyroidism, unspecified (principal)
CPT/HCPCS: 36415; 84439; 84443

== ENCOUNTER → 2020-10-05 13:19 | Outpatient (CLI) | payer MEDICARE, OTHER, SELFPAY ==
[2020-10-05 15:36] LABS: Thyroid Stimulating Hormone 0.313 uIU/mL (0.47-4.68)
== END ==
PROVIDERS: PCP Student in an Organized Health Care Education/Training Program; Referring Provider Student in an Organized Health Care Education/Training Program; Visit Provider Student in an Organized Health Care Education/Training Program
DX: E03.9 Hypothyroidism, unspecified (principal)
CPT/HCPCS: 36415; 84439; 84443; 84481

== ENCOUNTER → 2020-11-30 13:24 | Outpatient (CLI) | payer MEDICARE, OTHER, SELFPAY ==
[2020-11-30 15:16] LABS: Free T3, Triiodothyronine Free 3.06 pg/mL (2.77-5.27); Free T4, Direct Thyroxine 1.24 ng/dL (0.78-2.19)
[2020-11-30 15:29] LABS: Thyroid Stimulating Hormone 0.778 uIU/mL (0.47-4.68)
== END ==
PROVIDERS: PCP Student in an Organized Health Care Education/Training Program; Referring Provider Student in an Organized Health Care Education/Training Program; Visit Provider Student in an Organized Health Care Education/Training Program
DX: E03.9 Hypothyroidism, unspecified (principal)
CPT/HCPCS: 36415; 84439; 84443; 84481

== ENCOUNTER → 2021-01-25 16:16 | Outpatient (CLI) | payer MEDICARE, OTHER, SELFPAY ==
--- NOTE | 2021-01-25 16:18 | DI.RAD.S_ITS ---
PROCEDURE: XR HAND RT MIN 3V INDICATIONS: Bilateral hand pain TECHNIQUE: 3 views of the hand(s) acquired. COMPARISON: None. FINDINGS: Bones: No fractures or dislocations. Carpal bones are normally aligned. No suspicious bony lesions. Joint space narrowing and periarticular osteophyte formation at the scaphoid trapezial, 1st carpometacarpal joint, as well as the interphalangeal joints of the digits, worst at the 2nd and 3rd distal interphalangeal joints. Soft tissues: No suspicious soft tissue calcifications. IMPRESSION: Multifocal osteoarthritis. No acute fracture. No osseous lesion. If symptoms and/or clinical suspicion for pathology persist, further assessment with repeat, or advanced imaging (e.g., CT, MRI, or bone scan) may be helpful for further assessment. Dictated by: Digna Crane M.D. on 01/25/2021 at 17:03 Approved by: Digna Crane M.D. on 01/25/2021 at 17:03
--- NOTE | 2021-01-25 16:18 | DI.RAD.S_ITS ---
PROCEDURE: XR HAND LT MIN 3V INDICATIONS: Bilateral hand pain TECHNIQUE: 3 views of the hand(s) acquired. COMPARISON: None. FINDINGS: Bones: No acute fractures or dislocations. Carpal bones are normally aligned. No suspicious bony lesions. Multifocal joint space narrowing and periarticular osteophyte formation, worst at the interphalangeal joint of the 1st digit as well as the distal interphalangeal joints of the 2nd and 3rd digits. Ununited chronic ulnar styloid fracture. Soft tissues: No suspicious soft tissue calcifications. IMPRESSION: 1. Multifocal osteoarthritis. 2. Ununited chronic ulnar styloid fracture. 3. No acute fracture. No osseous lesion. If symptoms and/or clinical suspicion for pathology persist, further assessment with repeat, or advanced imaging (e.g., CT, MRI, or bone scan) may be helpful for further assessment. Dictated by: Digna Crane M.D. on 01/25/2021 at 17:02 Approved by: Digna Crane M.D. on 01/25/2021 at 17:03
== END ==
PROVIDERS: PCP Student in an Organized Health Care Education/Training Program; Referring Provider Student in an Organized Health Care Education/Training Program; Visit Provider Student in an Organized Health Care Education/Training Program
DX: M79.641 Pain in right hand (principal); M79.642 Pain in left hand; S52.612K Displaced fracture of left ulna styloid process, subsequent encounter for closed fracture with nonunion; M19.042 Primary osteoarthritis, left hand; M19.041 Primary osteoarthritis, right hand; R20.2 Paresthesia of skin
CPT/HCPCS: 73130

== ENCOUNTER → 2021-04-07 15:19 | Outpatient (CLI) | payer MEDICARE, OTHER, SELFPAY ==
[2021-04-07 18:06] LABS: TSH w/ Reflex to FT4 0.96 uIU/mL (0.47-4.68)
== END ==
PROVIDERS: PCP Student in an Organized Health Care Education/Training Program; Referring Provider Student in an Organized Health Care Education/Training Program; Visit Provider Student in an Organized Health Care Education/Training Program
DX: E03.9 Hypothyroidism, unspecified (principal)
CPT/HCPCS: 36415; 84443

== ENCOUNTER → 2021-07-30 14:43 | Outpatient (CLI) | payer MEDICARE, OTHER, SELFPAY ==
--- NOTE | 2021-07-30 | DI.MG.S_ITS ---
BILATERAL DIGITAL SCREENING MAMMOGRAM 3D/2D WITH CAD: 07/30/2021 Comparison is made to exams dated: 11/14/2018 mammogram, 10/17/2017 mammogram, and 09/02/2016 mammogram - [facility]. The tissue of both breasts is heterogeneously dense. This may lower the sensitivity of mammography. Current study was also evaluated with a Computer Aided Detection (CAD) system. There is a biopsy clip in the right breast. No significant masses, calcifications, or other findings are seen in either breast. There has been no significant interval change. IMPRESSION: NEGATIVE There is no mammographic evidence of malignancy. A 1 year screening mammogram is recommended. This exam was interpreted at Station ID: [id number]. NOTE: For mammograms, a report in lay terms will be sent to the patient. Approximately 15% of breast malignancies will not be visualized mammographically. In the management of a palpable breast mass, a negative mammogram must not discourage biopsy of a clinically suspicious lesion. Electronically Signed By: Landen harman/nadeem:07/30/2021 15:56:21 letter sent: Normal Exam ACR BI-RADS Category 1: Negative [id number]
== END ==
PROVIDERS: PCP Student in an Organized Health Care Education/Training Program; Referring Provider Student in an Organized Health Care Education/Training Program; Visit Provider Student in an Organized Health Care Education/Training Program
DX: Z12.31 Encounter for screening mammogram for malignant neoplasm of breast (principal)
CPT/HCPCS: 77063; 77067

== ENCOUNTER → 2021-08-31 07:47 | Outpatient (CLI) | payer MEDICARE, OTHER, SELFPAY ==
[2021-08-31 08:25] LABS: Hematocrit 38.2 % (36-46); Hemoglobin 13.1 g/dL (12.0-16.0); Mean Corpuscular HGB Conc 34.2 % (30-36); Mean Corpuscular Volume 90.7 fL (80-100); Platelet Count 174 X10^3/uL (150-400); Red Blood Cell Count 4.22 X10^6/uL (4.0-5.2); Red Cell Distribution Width 13.1 % (11.6-14.8); White Blood Cell Count 6.8 X10^3/uL (4.5-11.0)
[2021-08-31 08:47] LABS: BUN Creatinine Ratio 15.5 (6-22); Blood Urea Nitrogen 15 mg/dL (7-17); Calcium 9.7 mg/dL (8.4-10.2); Carbon Dioxide 29 mmol/L (22-32); Chloride 107 mmol/L (98-107); Estimated Glomerular Filt Rate 57.3 mL/min (>60); Glucose 104 mg/dL (80-110); HEMOLYSIS < 15 (0-50); Potassium 4.2 mmol/L (3.4-5.1); Sodium 140 mmol/L (137-145)
[2021-08-31 08:51] LABS: Cholesterol 218 mg/dL (140-199); HDL Cholesterol 78 mg/dL (40-60); LDL Cholesterol Calculated 122 mg/dL (<100); Triglycerides 91 mg/dL (35-150)
[2021-08-31 09:21] LABS: Thyroid Stimulating Hormone 0.655 uIU/mL (0.47-4.68)
== END ==
PROVIDERS: PCP Student in an Organized Health Care Education/Training Program; Referring Provider Internal Medicine Cardiovascular Disease; Visit Provider Internal Medicine Cardiovascular Disease
DX: E78.5 Hyperlipidemia, unspecified (principal); R00.0 Tachycardia, unspecified; I43 Cardiomyopathy in diseases classified elsewhere
CPT/HCPCS: 36415; 80048; 80061; 84443; 85027

== ENCOUNTER → 2021-09-20 14:16 | Outpatient (CLI) | payer MEDICARE, OTHER, SELFPAY ==
--- NOTE | 2021-09-20 14:17 | DI.RAD.S_ITS ---
PROCEDURE: XR DEXA AXIAL SKELETON INDICATIONS: Osteoporosis screening COMPARISON: None. FINDINGS: This blank DEXA report has been sent in error by the PACS system. The correct and complete report will be forthcoming in 1-2 days. Thank you for your patience and understanding. Dictated by: Neeta Maddox MD, PhD on 09/20/2021 at 17:43 Approved by: Neeta Maddox MD, PhD on 09/20/2021 at 17:43
== END ==
PROVIDERS: PCP Student in an Organized Health Care Education/Training Program; Referring Provider Student in an Organized Health Care Education/Training Program; Visit Provider Student in an Organized Health Care Education/Training Program
DX: Z78.0 Asymptomatic menopausal state (principal); M85.852 Other specified disorders of bone density and structure, left thigh; E07.9 Disorder of thyroid, unspecified; Z90.722 Acquired absence of ovaries, bilateral; Z87.891 Personal history of nicotine dependence; Z82.62 Family history of osteoporosis
CPT/HCPCS: 77080

== ENCOUNTER → 2021-09-27 08:58 | Outpatient (CLI) | payer MEDICARE, OTHER, SELFPAY ==
--- NOTE | 2021-09-27 | DI.ECHO.S_ITS ---
[place] [facility]---------+ [facility] +---------+ : : [address] : : : : [id number] : : : : Phone: [phone] Echocardiogram Report + + :Name: IDANIA HORTON Study Date: 09/27/2021 Height: 26.5 in: :[facility] ReadingLocation: Weight: 166 lb : : Gender: Female BSA: 0.95 m2 : :: 1955 Age: 66 yrs BP: 150/90 mmHg: :Reason For Study: Murmur : :Ordering Physician: : :ADAN Performed By: Reji Beal : :Referring: FREIDA MARTINEZ : + + Interpretation Summary The left ventricle is normal in size. The ejection fraction is estimated to be 55-60%. Left ventricular systolic function has mildly improved compared to the previous exam. The right ventricle is mildly dilated. Right ventricular size has increased since the prior echo exam. The right ventricular systolic function is normal. There is a pacemaker lead in the right ventricle. There is moderate mitral regurgitation. Compared to the prior echo study, there has been an increase in the severity of mitral regurgitation. There is moderate to severe tricuspid regurgitation. Compared to the prior echo exam, there has been no change in TR severity. The right ventricular systolic pressure is estimated to be at least 33 mmHg based on an estimated right atrial pressure of 3 mm Hg. Procedure: A two-dimensional transthoracic echocardiogram with color flow and Doppler was performed. The study quality was technically adequate. Comparison is made with the echocardiogram of 07/17/2020. The patient has a paced rhythm. Left Ventricle: The left ventricle is normal in size. There is normal left ventricular wall thickness. There is no thrombus. The ejection fraction is estimated to be 55-60%. Left ventricular systolic function has mildly improved compared to the previous exam. Septal motion is consistent with conduction abnormality. Diastolic function could not be accurately assessed due to paced rhythm. Right Ventricle: There is a pacemaker lead in the right ventricle. The right ventricle is mildly dilated. Right ventricular size has increased since the prior echo exam. The right ventricular systolic function is normal. Atria: There is severe biatrial enlargement. Both atria have remained unchanged in size since the prior echo exam. There is a catheter/pacemaker lead seen in the right atrium. There is no Doppler evidence for an interatrial shunt. Mitral Valve: The mitral valve leaflets appear borderline thickened, but open well. There is moderate mitral regurgitation. Compared to the prior echo study, there has been an increase in the severity of mitral regurgitation. Aortic Valve: The aortic valve is trileaflet. The aortic valve opens well. There is no aortic valve stenosis. There is trace aortic regurgitation. Tricuspid Valve: The tricuspid annulus is dilated. There is moderate to severe tricuspid regurgitation. The right ventricular systolic pressure is estimated to be at least 33 mmHg based on an estimated right atrial pressure of 3 mm Hg. Compared to the prior echo exam, there has been no change in TR severity. Pulmonic Valve: The pulmonic valve leaflets are thin and pliable; valve motion is normal. Great Vessels: The aortic root is normal size. The ascending aorta is normal in size. The aortic arch is normal in size. The IVC is of normal diameter and collapses greater than 50% with a sniff. This suggests a low right atrial pressure of 3 mm Hg. Pericardium/ Pleura There is no pericardial effusion. There is no pleural effusion. MMode/2D Measurements & Calculations LVIDd: 5.1 cm LVOT diam: 1.9 cm LVIDs: 3.6 cm Ao root diam: 3.0 cm FS: 29.4 % asc Aorta Diam: 2.8 cm IVSd: 0.80 cm Ao Arch Diam (Prox Trans): 3.0 cm LVPWd: 1.5 cm LV pineda. diameter/BSA (cm/m^2): 5.4 LV sys. diameter/BSA (cm/m^2): 3.8 LA A2 area: 14.6 cm2 RA long axis: 5.6 cm LA A4 area: 30.0 cm2 RA area: 19.7 cm2 LA length (vol): 5.9 cm RA vol: 58.5 ml LA vol: 62.6 ml RA : 61.5 ml/m2 LA vol index: 65.9 ml/m2 IVC diam: 1.5 cm LVLs ap4: 5.6 cm LVLd ap2: 6.5 cm LVLs ap2: 4.7 cm TAPSE_phl: 2.2 cm Doppler Measurements & Calculations Ao V2 max: 112.0 cm/sec LVOT Max Duke: 70.9 cm/sec Ao V2 mean: 80.1 cm/sec LV V1 max P.0 mmHg Ao max P.0 mmHg LV V1 VTI: 15.6 cm Ao mean P.0 mmHg JJ(I,D): 1.9 cm2 Ao V2 VTI: 23.9 cm JJ(V,D): 1.8 cm2 sev ratio: 0.65 JJ indexed to BSA (cm^2/m^2): 1.9 MV E max duke: 67.9 cm/sec TR max duke: 272.8 cm/sec Med Peak E' Duke: 8.6 cm/sec TR max P.8 mmHg E/E' med: 7.9 PA V2 max: 51.6 cm/sec Lat Peak E' Duke: 10.8 cm/sec PA V2 mean: 38.0 cm/sec E/E' lat: 6.3 PA mean P.0 mmHg E/e' average: 7.1 PA pr(Accel): 21.9 mmHg MV dec time: 0.29 sec MR VTI: 197.0 cm SV(LVOT): 44.2 ml AV VR_phl: 0.63 JJ(VTI)/BSA_phl: 1.9 Reading Physician:06:23 PM
== END ==
PROVIDERS: PCP Student in an Organized Health Care Education/Training Program; Referring Provider Internal Medicine Cardiovascular Disease; Visit Provider Internal Medicine Cardiovascular Disease
DX: I34.0 Nonrheumatic mitral (valve) insufficiency (principal); I07.1 Rheumatic tricuspid insufficiency; Z95.0 Presence of cardiac pacemaker; I43 Cardiomyopathy in diseases classified elsewhere
CPT/HCPCS: 93306

== ENCOUNTER → 2022-02-26 08:20 | Outpatient (CLI) | payer MEDICARE, OTHER, SELFPAY ==
[2022-02-26 09:22] LABS: Add Manual Diff / Slide Review NO; Basophils Absolute Auto 0 /uL (0-100); Basophils Percent Auto 0.5 % (0-2); Eosinophils Absolute Auto 100 /uL (0-450); Eosinophils Percent Auto 1.1 % (2-4); Hematocrit 38.2 % (36-46); Lymphocytes Absolute Auto 1500 /uL (1100-4500); Lymphocytes Percent Auto 24.8 % (25-40); Mean Corpuscular Hemoglobin 31.1 PG (26-34); Mean Corpuscular Volume 91.5 fL (80-100); Monocytes Absolute Auto 400 /uL (0-900); Monocytes Percent Auto 6.7 % (3-14); Neutrophils Absolute Auto 4100 /uL (1500-7000); Neutrophils Percent Auto 66.9 % (50-75); Platelet Count 175 X10^3/uL (150-400); Red Blood Cell Count 4.17 X10^6/uL (4.0-5.2); Red Cell Distribution Width 13.3 % (11.6-14.8); White Blood Cell Count 6.2 X10^3/uL (4.5-11.0)
[2022-02-26 09:59] LABS: Erythrocyte Sedimentation Rate 16 MM/HR (0-20)
[2022-02-26 10:03] LABS: Thyroid Stimulating Hormone 0.621 uIU/mL (0.47-4.68)
[2022-02-27 15:30] LABS: C-Reactive Protein Quant < 0.5 mg/dL (<1.0)
[2022-02-27 16:13] LABS: Cortisol AM (Before 10AM) 14.4 ug/dL (4.46-22.7)
[2022-02-27 16:35] LABS: Vitamin B12 284 pg/mL (239-931)
[2022-02-27 17:50] LABS: Free T3, Triiodothyronine Free 3.04 pg/mL (2.77-5.27); Free T4, Direct Thyroxine 1.68 ng/dL (0.78-2.19)
[2022-02-28 13:33] LABS: SS A Ro Sjogrens Antibody 0.6 AI (0.0-0.9); SS B La Sjogrens Antibody < 0.2 AI (0.0-0.9)
[2022-03-01 17:42] LABS: ANA Screen, IFA Positive (.)
== END ==
PROVIDERS: PCP Student in an Organized Health Care Education/Training Program; Referring Provider Student in an Organized Health Care Education/Training Program; Visit Provider Student in an Organized Health Care Education/Training Program
DX: B00.1 Herpesviral vesicular dermatitis (principal); E03.9 Hypothyroidism, unspecified; H04.129 Dry eye syndrome of unspecified lacrimal gland; L65.9 Nonscarring hair loss, unspecified; M79.7 Fibromyalgia; R53.83 Other fatigue
CPT/HCPCS: 36415; 82533; 82607; 84439; 84443; 84481; 85025; 85651; 86038; 86140; 86235

== ENCOUNTER → 2022-06-20 08:03 | Outpatient (CLI) | payer MEDICARE, OTHER, SELFPAY ==
--- NOTE | 2022-06-20 08:09 | DI.RAD.S_ITS ---
PROCEDURE: XR HAND LT MIN 3V INDICATIONS: INJURY HISTORY TECHNIQUE: 3 views of the hand(s) acquired. COMPARISON: [facility], CR, XR HAND LT MIN 3V, 01/25/2021, 16:19. [facility], CR, XR HAND RT MIN 3V, 01/25/2021, 16:19. FINDINGS: Bones: No acute fracture or dislocation. Severe osteoarthritic changes are present at the 1st 2nd and 3rd digits predominantly within the distal interphalangeal joints and have a similar appearance to the study dated January 25, 2021. Moderate degenerative changes present at the 1st CMC joint, as before. Accessory ossicle, degenerative osteophyte, or chronic non unified ulnar styloid fracture is redemonstrated. Soft tissues: No suspicious soft tissue calcifications. IMPRESSION: Severe osteoarthritis as before. No acute radiographic findings. If pain persists, followup imaging in 5-7 days is recommended to exclude occult fracture. Dictated by: Phyllis Burdick M.D. on 06/20/2022 at 11:33 Approved by: Phyllis Burdick M.D. on 06/20/2022 at 11:36
[2022-06-20 09:32] LABS: Add Manual Diff / Slide Review NO; Basophils Absolute Auto 0 /uL (0-100); Basophils Percent Auto 0.8 % (0-2); Eosinophils Absolute Auto 100 /uL (0-450); Eosinophils Percent Auto 1.3 % (2-4); Hematocrit 36.8 % (36-46); Hemoglobin 12.4 g/dL (12.0-16.0); Lymphocytes Absolute Auto 1500 /uL (1100-4500); Lymphocytes Percent Auto 23.7 % (25-40); Mean Corpuscular HGB Conc 33.7 % (30-36); Mean Corpuscular Hemoglobin 30.7 PG (26-34); Mean Corpuscular Volume 90.9 fL (80-100); Monocytes Absolute Auto 400 /uL (0-900); Monocytes Percent Auto 7.1 % (3-14); Neutrophils Absolute Auto 4100 /uL (1500-7000); Neutrophils Percent Auto 67.1 % (50-75); Platelet Count 168 X10^3/uL (150-400); Red Blood Cell Count 4.05 X10^6/uL (4.0-5.2); Red Cell Distribution Width 13.4 % (11.6-14.8); White Blood Cell Count 6.2 X10^3/uL (4.5-11.0)
[2022-06-20 10:01] LABS: Alanine Aminotransferase 13 IU/L (<35); Albumin Globulin Ratio 1.3 (1.0-2.8); Alkaline Phosphatase 91 U/L (38-126); Aspartate Aminotransferase 19 IU/L (14-36); BUN Creatinine Ratio 14.9 (6-22); Bilirubin Total 0.5 mg/dL (0.2-1.3); Blood Urea Nitrogen 14 mg/dL (7-17); C-Reactive Protein Quant < 0.5 mg/dL (<1.0); Calcium 9.1 mg/dL (8.4-10.2); Carbon Dioxide 28 mmol/L (22-32); Chloride 105 mmol/L (98-107); Creatine Kinase 43 U/L (30-135); Estimated Glomerular Filt Rate > 60 mL/min (>60); Globulin 3.1 g/dL (1.7-4.1); Glucose 101 mg/dL (80-110); HEMOLYSIS < 15 (0-50); Potassium 4.1 mmol/L (3.4-5.1); Sodium 140 mmol/L (137-145); Total Protein 7.1 g/dL (6.3-8.2)
[2022-06-20 10:03] LABS: Rheumatoid Factor < 8.6 IU/mL (<12.0)
[2022-06-20 10:14] LABS: Erythrocyte Sedimentation Rate 19 MM/HR (0-20)
[2022-06-20 12:36] LABS: Appearance Urine UA CLEAR; Bilirubin Urine UA NEGATIVE (NEGATIVE); Color Urine UA YELLOW; Glucose Urine UA NEGATIVE (Negative); Ketones Urine UA NEGATIVE (NEGATIVE); Leukocyte Esterase Urine UA NEGATIVE (NEGATIVE); Nitrite Urine UA NEGATIVE (Negative); Occult Blood Urine UA TRACE-LYSED (Negative); Protein Urine UA NEGATIVE (Negative); Urobilinogen Urine UA 0.2 E.U./dL (0.2)
[2022-06-20 12:46] LABS: Amorphous Sediment Urine 1+; Bacteria Urine Occasional (0-1); Culture Indicated Urine Cult Not Indicated; Mucus Urine 1+ (Negative); RBC Urine 0-1/HPF (0-5/HPF); Squamous Epithelial Cell Urine 1-5 /HPF (0-5/HPF); WBC Urine 0-1/HPF (0-5/HPF)
[2022-06-20 16:02] LABS: Hepatitis B Surface Antigen NEGATIVE s/c (NEGATIVE)
[2022-06-20 16:24] LABS: Hep C Virus Ab w/Reflex Quant NEGATIVE s/c (NEGATIVE)
[2022-06-21 05:21] LABS: Complement C3 104 mg/dL (82-167)
[2022-06-21 20:07] LABS: DNA (DS) Antibody 2 IU/mL (0-9)
[2022-06-22 21:36] LABS: CCP Antibodies IgG/IgA 11 units (0-19)
[2022-06-23 18:42] LABS: ANA Screen, IFA Positive (.)
[2022-06-27 09:08] LABS: HLA B27 Negative (.)
== END ==
PROVIDERS: PCP Student in an Organized Health Care Education/Training Program; Referring Provider Internal Medicine Rheumatology; Visit Provider Internal Medicine Rheumatology
DX: M19.042 Primary osteoarthritis, left hand (principal); M19.041 Primary osteoarthritis, right hand; M25.50 Pain in unspecified joint; R76.8 Other specified abnormal immunological findings in serum; M79.10 Myalgia, unspecified site
CPT/HCPCS: 36415; 73130; 80053; 81001; 81374; 82085; 82550; 85025; 85651; 86038; 86140; 86160; 86200; 86225; 86430; 86803; 87340

== ENCOUNTER → 2022-08-18 14:51 | Outpatient (CLI) | payer MEDICARE, OTHER, SELFPAY ==
--- NOTE | 2022-08-18 | DI.MG.S_ITS ---
BILATERAL DIGITAL SCREENING MAMMOGRAM 3D/2D WITH CAD: 08/18/2022 CLINICAL: Routine screening. Family history of breast cancer. Comparison is made to exams dated: 07/30/2021 mammogram, 11/14/2018 mammogram, 10/17/2017 mammogram, and 09/19/2016 mammogram - [facility]. Both breasts are heterogeneously dense, which may obscure small masses (category c / 51-75% glandular tissue). Current study was also evaluated with a Computer Aided Detection (CAD) system. There is a biopsy clip in the right breast. No significant masses, calcifications, or other findings are seen in either breast. There has been no significant interval change. IMPRESSION: NEGATIVE There is no mammographic evidence of malignancy. A 1 year screening mammogram is recommended. Based on the Tyrer Cuzick model (a risk assessment model) the patient's lifetime risk is 5.9% and her 10 year risk is 3.3%. According to the ACR, ACS, and NCCN guidelines, an annual breast MRI exam along with mammogram is recommended if the patient's lifetime risk is 20% or greater. This exam was interpreted at Station ID: [id number]. NOTE: For mammograms, a report in lay terms will be sent to the patient. Approximately 15% of breast malignancies will not be visualized mammographically. In the management of a palpable breast mass, a negative mammogram must not discourage biopsy of a clinically suspicious lesion. Electronically Signed By: Chet briones/nadeem:08/18/2022 18:01:54 letter sent: Normal Exam ACR BI-RADS Category 1: Negative 3341F
== END ==
PROVIDERS: PCP Student in an Organized Health Care Education/Training Program; Referring Provider Student in an Organized Health Care Education/Training Program; Visit Provider Student in an Organized Health Care Education/Training Program
DX: Z12.31 Encounter for screening mammogram for malignant neoplasm of breast (principal); Z80.3 Family history of malignant neoplasm of breast
CPT/HCPCS: 77063; 77067

== ENCOUNTER → 2022-08-24 11:07 | Outpatient (CLI) | payer MEDICARE, OTHER, SELFPAY ==
[2022-08-24 14:11] LABS: BUN Creatinine Ratio 16.7 (6-22); Blood Urea Nitrogen 17 mg/dL (7-17); Calcium 8.9 mg/dL (8.4-10.2); Carbon Dioxide 27 mmol/L (22-32); Chloride 104 mmol/L (98-107); Estimated Glomerular Filt Rate 60 mL/min (>60); Glucose 88 mg/dL (80-110); HEMOLYSIS < 15 (0-50); Potassium 4.4 mmol/L (3.4-5.1); Sodium 140 mmol/L (137-145)
== END ==
PROVIDERS: PCP Student in an Organized Health Care Education/Training Program; Referring Provider Internal Medicine Cardiovascular Disease; Visit Provider Internal Medicine Cardiovascular Disease
DX: I48.19 Other persistent atrial fibrillation (principal)
CPT/HCPCS: 36415; 80048

== ENCOUNTER → 2022-09-20 12:35 | Outpatient (CLI) | payer MEDICARE, OTHER, SELFPAY ==
--- NOTE | 2022-09-20 12:37 | DI.ECHO.S_ITS ---
[place] [facility]---------+ [facility] +---------+ : : [address] : : : : [id number] : : : : Phone: [phone]+ Echocardiogram Report + + :Name: IDANIA HORTON Study Date: 09/20/2022 Height: 67.5 in: :[facility] ReadingLocation: Weight: 154 lb : : Gender: Female BSA: 1.8 m2 : :: 1955 Age: 67 yrs BP: 145/92 mmHg: :Reason For Study: TRICUSPID INSUFFICIENCY : :Ordering Physician: : :FREIDA MARTINEZ Performed By: Kaleigh Smith : :Referring: FREIDA MARTINEZ : + + Interpretation Summary The left ventricle is normal in size. Left ventricular ejection fraction is estimated to be 60 +/- 5%. Previous LVEF 55 to 60%. The right ventricle is normal in size and function. There is a pacemaker lead in the right ventricle. RVD1 (basal): 3.8 cm TAPSE: 2.2 cm There is moderate mitral regurgitation. Compared to the prior echo study, there has been no change in the severity of mitral regurgitation. There is moderate to severe tricuspid regurgitation. Compared to the prior echo exam, there has been no change in TR severity. The right ventricular systolic pressure is estimated to be at least 43 mmHg based on an estimated right atrial pressure of 3 mm Hg. Previously 33 mmHg. Procedure: A two-dimensional transthoracic echocardiogram with color flow and Doppler was performed. The study quality was technically adequate. Comparison is made with the echocardiogram of 09/27/2021. The patient has a paced rhythm. The heart rate ranged between 70 bpm during the study. Left Ventricle: The left ventricle is normal in size. Left ventricular wall thickness is borderline increased. There is no thrombus. Left ventricular ejection fraction is estimated to be 60 +/- 5%. There are no focal wall motion abnormalities. E/E' med: 7.1. No significant diastolic dysfunction. Right Ventricle: There is a pacemaker lead in the right ventricle. The right ventricle is normal in size and function. Atria: The left atrium is severely dilated. The left atrium has remained unchanged in size since the prior echo exam. The right atrium is moderate to severely dilated. There is no Doppler evidence for an interatrial shunt. Mitral Valve: The mitral valve leaflets appear mildly thickened, but open well. The mitral valve leaflets are slightly calcified. There is moderate mitral regurgitation. Compared to the prior echo study, there has been no change in the severity of mitral regurgitation. Aortic Valve: The aortic valve is trileaflet. The aortic valve opens well. There is no aortic valve stenosis. No aortic regurgitation is present. Tricuspid Valve: The tricuspid annulus is dilated. There is moderate to severe tricuspid regurgitation. The right ventricular systolic pressure is estimated to be at least 43 mmHg based on an estimated right atrial pressure of 3 mm Hg. Compared to the prior echo exam, there has been no change in TR severity. Pulmonic Valve: The pulmonic valve leaflets are thin and pliable; valve motion is normal. There is no pulmonic valvular regurgitation. Great Vessels: The aortic root is normal size. The dimensions of the ascending aorta are normal. The IVC is of normal diameter and collapses greater than 50% with a sniff. This suggests a low right atrial pressure of 3 mm Hg. Pericardium/ Pleura There is no pericardial effusion. There is an anterior echo-free space consistent with a fat pad. There is no pleural effusion. MMode/2D Measurements & Calculations LVIDd: 4.4 cm LVOT diam: 1.9 cm LVIDs: 3.3 cm Ao root diam: 3.1 cm FS: 26.3 % asc Aorta Diam: 2.8 cm IVSd: 1.0 cm Ao Arch Diam (Prox Trans): 2.5 cm LVPWd: 1.1 cm LV pineda. diameter/BSA (cm/m^2): 2.4 LV sys. diameter/BSA (cm/m^2): 1.8 LA A2 area: 33.0 cm2 RA long axis: 6.0 cm LA A4 area: 32.7 cm2 RA area: 20.8 cm2 LA length (vol): 6.9 cm RA vol: 61.7 ml LA vol: 132.9 ml RA : 33.9 ml/m2 LA vol index: 73.1 ml/m2 IVC diam: 1.3 cm RVD1 (basal): 3.8 cm TAPSE: 2.2 cm Doppler Measurements & Calculations Ao V2 max: 128.8 cm/sec LVOT Max Duke: 69.7 cm/sec Ao V2 mean: 90.1 cm/sec LV V1 max P.9 mmHg Ao max P.6 mmHg LV V1 VTI: 14.4 cm Ao mean P.5 mmHg JJ(I,D): 1.7 cm2 Ao V2 VTI: 24.7 cm JJ(V,D): 1.6 cm2 sev ratio: 0.58 JJ indexed to BSA (cm^2/m^2): 0.95 MV E max duke: 79.5 cm/sec TR max duke: 358.6 cm/sec MV A max duke: 14.6 cm/sec TR max P.0 mmHg MV E/A: 5.5 PA V2 max: 71.5 cm/sec Med Peak E' Duke: 11.2 cm/sec PA V2 mean: 47.1 cm/sec E/E' med: 7.1 PA mean P.0 mmHg Lat Peak E' Duke: 11.3 cm/sec PA pr(Accel): 25.9 mmHg E/E' lat: 7.1 E/e' average: 7.1 MV dec time: 0.14 sec SV(LVOT): 42.7 ml Reading Physician:04:21 PM
== END ==
PROVIDERS: PCP Student in an Organized Health Care Education/Training Program; Referring Provider Internal Medicine Cardiovascular Disease; Visit Provider Internal Medicine Cardiovascular Disease
DX: I08.1 Rheumatic disorders of both mitral and tricuspid valves (principal)
CPT/HCPCS: 93306

== ENCOUNTER → 2022-10-14 12:13 | Outpatient (CLI) | payer MEDICARE, OTHER, SELFPAY ==
--- NOTE | 2022-10-14 12:16 | DI.RAD.S_ITS ---
PROCEDURE: FL BARIUM SWALLOW INDICATIONS: Chronic pansinusitis Dysphagia, pharyngoesophageal COMPARISON: [facility], CT, THORAX WITHOUT CONTRAST, 08/25/2017, 10:37. [facility], RF, FL BARIUM SWALLOW, 02/18/2020, 12:06. FINDINGS: Function: There is normal esophageal peristalsis. No elicited gastroesophageal reflux. There is normal transit of a calibrated barium tablet through the esophagus into the stomach. Morphology: Air-contrast images demonstrate normal mucosal morphology. Single contrast views show no esophageal strictures, extrinsic mass effects, or diverticula. There is a small hiatal hernia. Limited images of the stomach demonstrate normal appearance. IMPRESSION: Small sliding hiatal hernia, otherwise normal barium swallow Dictated by: Og Cortes M.D. on 10/14/2022 at 13:18 Approved by: Og Cortes M.D. on 10/14/2022 at 13:23
--- NOTE | 2022-10-14 12:16 | DI.CT.S_ITS ---
PROCEDURE: CT SINUS SCREEN WO CON INDICATIONS: Chronic pansinusitis Dysphagia, pharyngoesophageal TECHNIQUE: Noncontrast 3.0 mm axial images acquired from the frontal sinuses to the mid-sella, with coronal and sagittal reformats. For radiation dose reduction, the following was used: automated exposure control, adjustment of mA and/or kV according to patient size. COMPARISON: None. FINDINGS: Image quality: Excellent. Maxillary Sinuses: No bony remodeling or destruction. Sinuses are clear. Ethmoid Air Cells: No bony remodeling or destruction. Sinuses are clear. Sphenoid Sinuses: No bony remodeling or destruction. Sinuses are clear. Frontal Sinuses: No bony remodeling or destruction. Sinuses are clear. Ostiomeatal Complexes: Ostiomeatal complexes are patent, yet they are highly constitutionally narrowed, with bilateral Lenny cells. Miscellaneous: Visualized intra-orbital contents are normal. No franck bullosa or paradoxical turbinate curvature. There is mild leftward nasal septal deviation, with a leftward directed bony nasal septal spur. IMPRESSION: No significant active paranasal sinus disease is seen. Highly constitutionally narrowed ostiomeatal complexes, with bilateral Lenny cells. Mild leftward nasal septal deviation, with a leftward directed bony nasal septal spur. Dictated by: Charanjit Bay M.D. on 10/14/2022 at 12:47 Approved by: Charanjit Bay M.D. on 10/14/2022 at 12:48
== END ==
PROVIDERS: PCP Student in an Organized Health Care Education/Training Program; Referring Provider Otolaryngology; Visit Provider Otolaryngology
DX: J32.4 Chronic pansinusitis (principal); J34.2 Deviated nasal septum; K21.9 Gastro-esophageal reflux disease without esophagitis; R13.14 Dysphagia, pharyngoesophageal phase; K44.9 Diaphragmatic hernia without obstruction or gangrene
CPT/HCPCS: 70486; 74220

== ENCOUNTER → 2022-12-29 10:11 | Outpatient (CLI) | payer MEDICARE, OTHER, SELFPAY ==
--- NOTE | 2022-12-29 | DI.RAD.S_ITS ---
PROCEDURE: XR FOOT LT MIN 3V INDICATIONS: Pain in left toe(s) TECHNIQUE: 3 views of the foot were acquired. COMPARISON: None. FINDINGS: Bones: No acute fractures or dislocations. No suspicious bony lesions. Chronic deformity of the calcaneus. Calcaneal screw is present. Joint space narrowing and periarticular osteophyte formation at the 1st metatarsophalangeal joint as well as the interphalangeal joints of the digits, the talonavicular, and navicular cuneiform joints. Soft tissues: No tibiotalar joint effusion. Achilles tendon appears normal. IMPRESSION: 1. Postsurgical sequelae. 2. Multifocal osteoarthritis. 3. No acute fracture. No osseous lesion. If symptoms and/or clinical suspicion for pathology persist, further assessment with repeat, or advanced imaging (e.g., CT, MRI, or bone scan) may be helpful for further assessment. Dictated by: Digna Crane M.D. on 12/29/2022 at 11:47 Transcribed by: MISA on 12/29/2022 at 11:48 Approved by: Digna Crane M.D. on 12/29/2022 at 16:49
== END ==
PROVIDERS: PCP Student in an Organized Health Care Education/Training Program; Referring Provider Podiatrist Foot & Ankle Surgery; Visit Provider Podiatrist Foot & Ankle Surgery
DX: M19.072 Primary osteoarthritis, left ankle and foot (principal); M79.675 Pain in left toe(s); Z98.890 Other specified postprocedural states
CPT/HCPCS: 73630

== ENCOUNTER → 2023-02-28 13:34 | Outpatient (CLI) | payer MEDICARE, OTHER, SELFPAY ==
--- NOTE | 2023-02-28 13:50 | DI.RAD.S_ITS ---
PROCEDURE: XR LUMBAR SPINE 2-3V INDICATIONS: lumbar spine pain TECHNIQUE: 3 views of the lumbar spine were acquired. COMPARISON: [facility], , L-SPINE 2-3 VIEWS, 08/04/2017, 15:29. FINDINGS: Bones: 5 [id number] vertebrae are present. There is normal bony alignment. No vertebral body compression fractures. No suspicious bony lesions. Convex left thoracolumbar scoliosis. Diffuse disc space narrowing and hypertrophic facet joints present. Biventricular pacer leads and right upper quadrant surgical clips present. Soft tissues: Overlying bowel gas pattern is normal. No suspicious soft tissue calcifications. IMPRESSION: Thoracolumbar levoscoliosis and degenerative changes Approved by: Joseph Smith M.D. on 02/28/2023 at 18:42
[2023-02-28 15:52] LABS: Add Manual Diff / Slide Review NO; Basophils Absolute Auto 0 /uL (0-100); Basophils Percent Auto 0.6 % (0-2); Eosinophils Absolute Auto 100 /uL (0-450); Eosinophils Percent Auto 0.7 % (2-4); Hematocrit 34.8 % (36-46); Hemoglobin 11.9 g/dL (12.0-16.0); Lymphocytes Absolute Auto 1600 /uL (1100-4500); Lymphocytes Percent Auto 22.3 % (25-40); Mean Corpuscular HGB Conc 34.1 % (30-36); Mean Corpuscular Hemoglobin 31.2 PG (26-34); Mean Corpuscular Volume 91.4 fL (80-100); Monocytes Absolute Auto 400 /uL (0-900); Monocytes Percent Auto 6.2 % (3-14); Neutrophils Absolute Auto 5000 /uL (1500-7000); Neutrophils Percent Auto 70.2 % (50-75); Platelet Count 163 X10^3/uL (150-400); Red Cell Distribution Width 13.6 % (11.6-14.8); White Blood Cell Count 7.2 X10^3/uL (4.5-11.0)
[2023-02-28 16:16] LABS: Alanine Aminotransferase 20 IU/L (<35); Albumin 4.1 g/dL (3.5-5.0); Albumin Globulin Ratio 1.4 (1.0-2.8); Alkaline Phosphatase 119 U/L (38-126); Aspartate Aminotransferase 26 IU/L (14-36); Bilirubin Total 0.5 mg/dL (0.2-1.3); Blood Urea Nitrogen 13 mg/dL (7-17); Calcium 9.1 mg/dL (8.4-10.2); Carbon Dioxide 31 mmol/L (22-32); Chloride 103 mmol/L (98-107); Estimated Glomerular Filt Rate > 60 mL/min (>60); Glucose 122 mg/dL (80-110); HEMOLYSIS < 15 (0-50); Potassium 3.5 mmol/L (3.4-5.1); Sodium 140 mmol/L (137-145); Total Protein 7.1 g/dL (6.3-8.2)
[2023-02-28 16:33] LABS: Vitamin D 25 Hydroxy (D3) 33.2 ng/mL (30.0-100.0)
[2023-02-28 16:45] LABS: TSH w/ Reflex to FT4 1.12 uIU/mL (0.47-4.68)
[2023-02-28 17:21] LABS: Folate 6.5 ng/mL (2.76-20.0); Vitamin B12 Reflex MMA if <400 998 pg/mL (239-931)
== END ==
PROVIDERS: PCP Pediatrics; Referring Provider Pediatrics; Visit Provider Pediatrics
DX: E03.9 Hypothyroidism, unspecified (principal); Z86.39 Personal history of other endocrine, nutritional and metabolic disease; I48.0 Paroxysmal atrial fibrillation; M19.041 Primary osteoarthritis, right hand; M19.042 Primary osteoarthritis, left hand; M79.2 Neuralgia and neuritis, unspecified; R13.10 Dysphagia, unspecified; Z95.0 Presence of cardiac pacemaker; D16.00 Benign neoplasm of scapula and long bones of unspecified upper limb; M54.50 Low back pain, unspecified; M79.10 Myalgia, unspecified site; M41.85 Other forms of scoliosis, thoracolumbar region; E55.9 Vitamin D deficiency, unspecified
CPT/HCPCS: 36415; 72100; 80053; 82306; 82607; 82746; 84443; 85025

== ENCOUNTER → 2023-03-06 12:48 | Outpatient (CLI) | payer MEDICARE, OTHER, SELFPAY ==
[2023-03-06 14:35] LABS: Appearance Urine UA CLEAR; Bilirubin Urine UA NEGATIVE (NEGATIVE); Color Urine UA YELLOW; Glucose Urine UA NEGATIVE (Negative); Ketones Urine UA NEGATIVE (NEGATIVE); Leukocyte Esterase Urine UA NEGATIVE (NEGATIVE); Nitrite Urine UA NEGATIVE (Negative); Occult Blood Urine UA NEGATIVE (Negative); Protein Urine UA NEGATIVE (Negative); Urobilinogen Urine UA 0.2 E.U./dL (0.2)
[2023-03-06 14:36] LABS: pH Urine UA 6.5 (4.5-8.0)
[2023-03-06 14:45] LABS: Bacteria Urine Occasional (0-1); Culture Indicated Urine Cult Not Indicated; RBC Urine 1-5/HPF (0-5/HPF); Squamous Epithelial Cell Urine 1-5 /HPF (0-5/HPF); WBC Urine 1-5/HPF (0-5/HPF)
== END ==
PROVIDERS: PCP Pediatrics; Referring Provider Pediatrics; Visit Provider Pediatrics
DX: E03.9 Hypothyroidism, unspecified (principal); I48.0 Paroxysmal atrial fibrillation; M19.041 Primary osteoarthritis, right hand; M19.042 Primary osteoarthritis, left hand; M79.2 Neuralgia and neuritis, unspecified; R13.10 Dysphagia, unspecified; Z95.0 Presence of cardiac pacemaker
CPT/HCPCS: 81001

== ENCOUNTER → 2023-04-05 11:44 | Outpatient (CLI) | payer MEDICARE, OTHER, SELFPAY ==
[2023-04-10 22:01] LABS: Albumin 3.4 g/dL (2.9-4.4); Alpha 1 Globulin 0.2 g/dL (0.0-0.4); Alpha 2 Globulin 0.6 g/dL (0.4-1.0); Beta 1 Globulin 1.1 g/dL (0.7-1.3); Gamma Globulin 1.5 g/dL (0.4-1.8); Immunoglobulin A 187 mg/dL (87-352); Immunoglobulin G 1335 mg/dL (586-1602); Immunoglobulin M 190 mg/dL (26-217); Protein, Total 6.7 g/dL (6.0-8.5)
== END ==
PROVIDERS: PCP Pediatrics; Referring Provider Internal Medicine Rheumatology; Visit Provider Internal Medicine Rheumatology
DX: M13.0 Polyarthritis, unspecified (principal)
CPT/HCPCS: 36415; 84155; 84165

== ENCOUNTER → 2023-07-10 09:07 | Outpatient (CLI) | payer MEDICARE, OTHER, SELFPAY ==
--- NOTE | 2023-07-10 | DI.ECHO.S_ITS ---
[place] [facility]---------+ [facility] +---------+ : : [address] : : : : [id number] : : : : Phone: [phone]+ Echocardiogram Report + + :Name: IDANIA HORTON Study Date: 07/10/2023 Height: 67 in : :[facility] ReadingLocation: Weight: 155 lb : : Gender: Female BSA: 1.8 m2 : :: 1955 Age: 68 yrs BP: 164/106 mmHg: :Reason For Study: MITRAL INSUFFICIENCY : :Ordering Physician: JUAN, : :FREIDA Performed By: Kaleigh Smith : :Referring: FREIDA MARTINEZ : + + Interpretation Summary The left ventricle is normal in size and wall thickness. Left ventricular ejection fraction is estimated to be 60 +/- 5%. There has been no significant change in LVEF since the previous exam. The right ventricle is normal in size and function. There is a pacemaker lead in the right ventricle. There is moderate mitral regurgitation. Compared to the prior echo study, there has been no change in the severity of mitral regurgitation. There is moderate to severe tricuspid regurgitation. Compared to the prior echo exam, there has been no change in TR severity. The right ventricular systolic pressure is estimated to be at least 49 mmHg based on an estimated right atrial pressure of 3 mm Hg. Previously 43 mmHg. Procedure: A two-dimensional transthoracic echocardiogram with color flow and Doppler was performed. The study quality was technically adequate. Comparison is made with the echocardiogram of 09/20/2022. The patient has a paced rhythm. The heart rate ranged between 70 bpm during the study. Left Ventricle: The left ventricle is normal in size and wall thickness. There is no thrombus. The ejection fraction is estimated to be 65-70%. Left ventricular ejection fraction is estimated to be 60 +/- 5%. There has been no significant change since the previous exam. There are no focal wall motion abnormalities. Diastolic function could not be accurately assessed due to paced rhythm. Right Ventricle: The right ventricle is normal in size and function. There is a pacemaker lead in the right ventricle. Atria: The left atrium is severely dilated. There has been no significant change since the previous study. The right atrium is severely dilated. There is a catheter/pacemaker lead seen in the right atrium. There is no Doppler evidence for an interatrial shunt. Mitral Valve: The mitral valve leaflets appear mildly thickened, but open well. There is moderate mitral regurgitation. Compared to the prior echo study, there has been no change in the severity of mitral regurgitation. Aortic Valve: The aortic valve is trileaflet. The aortic valve opens well. There is no aortic valve stenosis. No aortic regurgitation is present. Tricuspid Valve: The tricuspid valve is normal. There is moderate to severe tricuspid regurgitation. The right ventricular systolic pressure is estimated to be at least 49 mmHg based on an estimated right atrial pressure of 3 mm Hg. Compared to the prior echo exam, there has been no change in TR severity. Pulmonic Valve: The pulmonic valve is not well seen, but is grossly normal. There is no pulmonic valvular regurgitation. Great Vessels: The aortic root is normal size. The dimensions of the ascending aorta are normal. The IVC is of normal diameter and collapses greater than 50% with a sniff. This suggests a low right atrial pressure of 3 mm Hg. Pericardium/ Pleura There is no pericardial effusion. There is no pleural effusion. MMode/2D Measurements & Calculations LVIDd: 5.5 cm LVOT diam: 2.2 cm LVIDs: 3.8 cm Ao root diam: 2.9 cm FS: 30.1 % asc Aorta Diam: 2.9 cm EPSS: 0.80 cm Ao Arch Diam (Prox Trans): 2.6 cm IVSd: 0.68 cm LVPWd: 0.74 cm LV pineda. diameter/BSA (cm/m^2): 3.0 LV sys. diameter/BSA (cm/m^2): 2.1 LA A2 area: 29.3 cm2 RA long axis: 6.2 cm LA A4 area: 31.1 cm2 RA area: 25.5 cm2 LA length (vol): 6.7 cm RA vol: 88.4 ml LA vol: 115.5 ml RA : 48.7 ml/m2 LA vol index: 63.7 ml/m2 IVC diam: 1.2 cm RVD1 (basal): 3.4 cm RVD2 (mid): 3.0 cm TAPSE: 1.7 cm Doppler Measurements & Calculations Ao V2 max: 113.7 cm/sec LVOT Max Duke: 65.0 cm/sec Ao V2 mean: 86.5 cm/sec LV V1 max P.7 mmHg Ao max P.2 mmHg LV V1 VTI: 14.2 cm Ao mean P.2 mmHg JJ(I,D): 2.4 cm2 Ao V2 VTI: 22.4 cm JJ(V,D): 2.1 cm2 sev ratio: 0.63 JJ indexed to BSA (cm^2/m^2): 1.3 MV E max duke: 81.5 cm/sec TR max duke: 339.1 cm/sec MV A max duke: 16.6 cm/sec TR max P.0 mmHg MV E/A: 4.9 PA V2 max: 67.4 cm/sec Med Peak E' Duke: 10.9 cm/sec PA V2 mean: 48.8 cm/sec E/E' med: 7.5 PA mean P.0 mmHg Lat Peak E' Duke: 12.6 cm/sec E/E' lat: 6.5 E/e' average: 7.0 MV dec time: 0.17 sec SV(LVOT): 52.7 ml Reading Physician:03:44 PM
== END ==
PROVIDERS: PCP Pediatrics; Referring Provider Internal Medicine Cardiovascular Disease; Visit Provider Internal Medicine Cardiovascular Disease
DX: I08.1 Rheumatic disorders of both mitral and tricuspid valves (principal); Z95.0 Presence of cardiac pacemaker
CPT/HCPCS: 93306

== ENCOUNTER → 2023-07-28 11:57 | Outpatient (CLI) | payer MEDICARE, OTHER, SELFPAY | PROVIDERS: PCP Pediatrics; Visit Provider Family Medicine | DX: R30.0 Dysuria (principal) | CPT/HCPCS: 87077; 87086; 87186 ==

== ENCOUNTER → 2023-09-06 13:57 | Outpatient (CLI) | payer MEDICARE, OTHER, SELFPAY ==
--- NOTE | 2023-09-06 | DI.MG.S_ITS ---
BILATERAL DIGITAL SCREENING MAMMOGRAM 3D/2D WITH CAD: 09/06/2023 CLINICAL: Routine screening. Family history of breast cancer. Comparison is made to exams dated: 08/18/2022 mammogram, 07/30/2021 mammogram, and 11/14/2018 mammogram - [facility]. Both breasts are heterogeneously dense, which may obscure small masses (category c / 51-75% glandular tissue). Current study was also evaluated with a Computer Aided Detection (CAD) system. There is a biopsy clip in the right breast. No significant masses, calcifications, or other findings are seen in either breast. There has been no significant interval change. IMPRESSION: NEGATIVE There is no mammographic evidence of malignancy. A 1 year screening mammogram is recommended. Based on the Tyrer Cuzick model (a risk assessment model) the patient's lifetime risk is 5.6% and her 10 year risk is 3.3%. According to the ACR, ACS, and NCCN guidelines, an annual breast MRI exam along with mammogram is recommended if the patient's lifetime risk is 20% or greater. This exam was interpreted at Station ID: [id number]. NOTE: For mammograms, a report in lay terms will be sent to the patient. Approximately 15% of breast malignancies will not be visualized mammographically. In the management of a palpable breast mass, a negative mammogram must not discourage biopsy of a clinically suspicious lesion. Electronically Signed By: Landen harman/nadeem:09/06/2023 16:10:46 letter sent: Normal Exam ACR BI-RADS Category 1: Negative 3341F
== END ==
PROVIDERS: PCP Family Medicine; Referring Provider Family Medicine; Visit Provider Family Medicine
DX: Z12.31 Encounter for screening mammogram for malignant neoplasm of breast (principal); Z80.3 Family history of malignant neoplasm of breast
CPT/HCPCS: 77063; 77067

== ENCOUNTER → 2023-10-05 14:41 | Outpatient (CLI) | payer MEDICARE, OTHER, SELFPAY ==
[2023-10-05 15:53] LABS: BUN Creatinine Ratio 17.1 (6-22); Blood Urea Nitrogen 13 mg/dL (7-17); Calcium 9.5 mg/dL (8.4-10.2); Carbon Dioxide 28 mmol/L (22-32); Chloride 103 mmol/L (98-107); Estimated Glomerular Filt Rate > 60 mL/min (>60); Glucose 95 mg/dL (80-110); HEMOLYSIS < 15 (0-50); Sodium 137 mmol/L (137-145)
== END ==
PROVIDERS: PCP Family Medicine; Referring Provider Internal Medicine Cardiovascular Disease; Visit Provider Internal Medicine Cardiovascular Disease
DX: I48.21 Permanent atrial fibrillation (principal)
CPT/HCPCS: 36415; 80048

== ENCOUNTER → 2023-11-03 14:37 | Outpatient (CLI) | payer MEDICARE, OTHER, SELFPAY ==
--- NOTE | 2023-11-03 14:38 | DI.CT.S_ITS ---
PROCEDURE: CT CHEST W CON INDICATIONS: Malignant neoplasm of pleura TECHNIQUE: After the administration of intravenous contrast, 5 mm thick sections acquired from the pulmonary apices to the posterior costophrenic angles. 1 mm axial lung, 5 mm thick coronal and sagittal reformats and 7 mm axial MIP were acquired. For radiation dose reduction, the following was used: automated exposure control, adjustment of mA and/or kV according to patient size. COMPARISON: [facility], CT, CT CHEST WITHOUT CONTRAST, 09/12/2023, 12:22. FINDINGS: Image quality: Diagnostic. Lower Neck: No enlarged lymph nodes. Thyroid: No thyroid nodules which require sonographic follow up, per consensus guidelines. Axillae: No enlarged lymph nodes. Chest Wall: Left chest wall pacer. Bones: No acute fracture. No aggressive appearing lytic or blastic osseous lesion S-shaped curvature of the spine with dextroconvex curvature of the thoracic spine and levoconvex curvature of the lumbar spine. Lungs and Pleura: Compared to CT chest dated September 12, 2023, mildly increased size of mass in the middle and right lower lobe crossing the major fissure measuring 9.4 x 6.5 x 7.3 cm (), previously 8.4 x 5.9 cm. This mass abuts the right pericardium and IVC without invasion. Stable right upper lobe solid pulmonary nodule measuring 0.3 cm (). Biapical pleural parenchymal scarring. Small right pleural effusion, stable. Right lower lobe compressive atelectasis. No left-sided pleural effusion. No pneumothorax. A Heart: Heart size is enlarged with left atrial enlargement. No pericardial effusion. Cardiac electrodes terminate in expected positions. Thoracic Vessels: The aorta and pulmonary arteries demonstrate normal size. No filling defects in the central pulmonary vasculature. Mediastinum and Carrie: No enlarged lymph nodes. Esophagus: No wall thickening. No hiatal hernia. Upper Abdomen: Visualized upper abdomen solid organs and bowel loops demonstrate no acute findings. Cholecystectomy. Mild calcification of the abdominal aorta. IMPRESSION: 1. Compared to CT chest dated September 12, 2023, mildly increased size of mass in the middle and right lower lobe measuring 9.4 x 6.5 cm, previously 8.4 x 5.9 cm, concerning for malignancy. Consider tissue sampling or PET-CT for further evaluation. 2. Stable right upper lobe solid pulmonary nodule measuring 0.3 cm which is indeterminate. 3. Small right pleural effusion, stable. 4. No lymphadenopathy in the chest. Please note significant images would not save in working montage despite multiple attempts. Dictated by: Olivia Burns M.D. on 11/03/2023 at 19:07 Approved by: Olivia Burns M.D. on 11/03/2023 at 19:17
== END ==
LOC: CT 14:37
PROVIDERS: PCP Family Medicine; Referring Provider Thoracic Surgery (Cardiothoracic Vascular Surgery); Visit Provider Thoracic Surgery (Cardiothoracic Vascular Surgery)
DX: C38.4 Malignant neoplasm of pleura (principal); J90 Pleural effusion, not elsewhere classified; R91.8 Other nonspecific abnormal finding of lung field; I51.7 Cardiomegaly; Z95.0 Presence of cardiac pacemaker
CPT/HCPCS: 71260; Q9967

== ENCOUNTER → 2023-11-06 08:31 | Outpatient (CLI) | payer MEDICARE, OTHER, SELFPAY ==
[2023-11-06 09:35] LABS: Influenza A - CEPHEID Flu A NEGATIVE (NEGATIVE); Influenza B - CEPHEID Flu B NEGATIVE (NEGATIVE); Respiratory Syncytial Virus Negative (Negative)
[2023-11-06 09:37] LABS: COVID-19 CEPHEID 4-PLEX PCR Negative (Negative)
== END ==
PROVIDERS: PCP Family Medicine; Visit Provider Family Medicine
DX: R50.9 Fever, unspecified (principal)
CPT/HCPCS: 0241U

== ENCOUNTER → 2024-01-11 12:53 | Outpatient (CLI) | payer MEDICARE, OTHER, SELFPAY ==
--- NOTE | 2024-01-11 12:57 | DI.RAD.S_ITS ---
PROCEDURE: XR CHEST 2V INDICATIONS: LUNG MASS TECHNIQUE: 2 views of the chest were acquired. COMPARISON: [facility], CT, CT CHEST W CON, 11/03/2023, 14:49. [facility], CR, XR CHEST 1V, 05/28/2020, 17:20. [facility], CR, XR CHEST 2V, 03/06/2018, 11:16. FINDINGS: Surgical changes and devices: Right middle lobe resection. Left chest wall generator with cardiac leads. Lungs and pleura: Lungs are clear. No pleural effusions or pneumothorax. Mediastinum: Mediastinal contours are normal. Heart size is normal. Bones and chest wall: No suspicious bony abnormalities. Soft tissues appear unremarkable. IMPRESSION: Interval right middle lobe resection. No acute abnormality. Dictated by: Cheko Dudley M.D. on 01/11/2024 at 15:19 Approved by: Cheko Dudley M.D. on 01/11/2024 at 15:20
== END ==
PROVIDERS: PCP Family Medicine; Referring Provider Registered Nurse Registered Nurse First Assistant; Visit Provider Registered Nurse Registered Nurse First Assistant
DX: R91.8 Other nonspecific abnormal finding of lung field (principal); Z98.890 Other specified postprocedural states
CPT/HCPCS: 71046

== ENCOUNTER → 2024-02-01 07:47 | Outpatient (CLI) | payer MEDICARE, OTHER, SELFPAY ==
[2024-02-01 08:21] LABS: Add Manual Diff / Slide Review NO; Basophils Absolute Auto 100 /uL (0-100); Basophils Percent Auto 0.9 % (0-2); Eosinophils Absolute Auto 100 /uL (0-450); Eosinophils Percent Auto 1.2 % (2-4); Hematocrit 35.9 % (36-46); Lymphocytes Absolute Auto 1600 /uL (1100-4500); Lymphocytes Percent Auto 25.3 % (25-40); Mean Corpuscular HGB Conc 33.3 % (30-36); Mean Corpuscular Hemoglobin 30.4 PG (26-34); Mean Corpuscular Volume 91.3 fL (80-100); Monocytes Absolute Auto 400 /uL (0-900); Monocytes Percent Auto 6.3 % (3-14); Neutrophils Absolute Auto 4300 /uL (1500-7000); Neutrophils Percent Auto 66.3 % (50-75); Platelet Count 161 X10^3/uL (150-400); Red Blood Cell Count 3.94 X10^6/uL (4.0-5.2); Red Cell Distribution Width 13.6 % (11.6-14.8); White Blood Cell Count 6.5 X10^3/uL (4.5-11.0)
[2024-02-01 08:53] LABS: Alanine Aminotransferase 14 IU/L (<35); Albumin 3.9 g/dL (3.5-5.0); Albumin Globulin Ratio 1.4 (1.0-2.8); Alkaline Phosphatase 101 U/L (38-126); Aspartate Aminotransferase 20 IU/L (14-36); Bilirubin Total 0.7 mg/dL (0.2-1.3); Blood Urea Nitrogen 15 mg/dL (7-17); Calcium 8.6 mg/dL (8.4-10.2); Carbon Dioxide 28 mmol/L (22-32); Chloride 107 mmol/L (98-107); Estimated Glomerular Filt Rate > 60 mL/min (>60); Globulin 2.8 g/dL (1.7-4.1); Glucose 101 mg/dL (80-110); HEMOLYSIS < 15 (0-50); Lactate Dehydrogenase 160 U/L (120-246); Potassium 4.6 mmol/L (3.4-5.1); Sodium 139 mmol/L (137-145); Total Protein 6.7 g/dL (6.3-8.2)
[2024-02-01 09:15] LABS: Thyroid Stimulating Hormone 1.32 uIU/mL (0.47-4.68)
[2024-02-02 20:17] LABS: Free Kappa Lt Chains, Serum 32.2 mg/L (3.3-19.4); Free Lambda Lt Chains,Serum 20.6 mg/L (5.7-26.3)
== END ==
PROVIDERS: PCP Family Medicine; Referring Provider Internal Medicine Hematology & Oncology; Visit Provider Internal Medicine Hematology & Oncology
DX: E03.9 Hypothyroidism, unspecified (principal); D47.2 Monoclonal gammopathy
CPT/HCPCS: 36415; 80053; 82784; 83615; 83883; 84155; 84165; 84443; 85025; 86334

== ENCOUNTER → 2024-09-07 11:16 | Outpatient (CLI) | payer MEDICARE, OTHER, SELFPAY ==
--- NOTE | 2024-09-07 | DI.MG.S_ITS ---
BILATERAL DIGITAL SCREENING MAMMOGRAM 3D/2D WITH CAD: 09/07/2024 CLINICAL: Routine screening. Family history of breast cancer. Comparison is made to exams dated: 09/06/2023 mammogram, 08/18/2022 mammogram, and 07/30/2021 mammogram - [facility]. The breasts are heterogeneously dense, which may obscure small masses (category c / 51-75% glandular tissue). Current study was also evaluated with a Computer Aided Detection (CAD) system. There is a possible irregular high density asymmetry in the right breast at 10 o'clock middle depth. There also is a new architectural distortion in the right breast posterior depth superior region seen on the mediolateral oblique view only. No other significant masses, calcifications, or other findings are seen in either breast. IMPRESSION: INCOMPLETE: NEED ADDITIONAL IMAGING EVALUATION The possible irregular high density asymmetry in the right breast at 10 o'clock middle depth is indeterminate. Additional views with possible ultrasound are recommended. The new architectural distortion in the right breast posterior depth superior region seen on the mediolateral oblique view only is indeterminate. Additional views with possible ultrasound are recommended. Based on the Tyrer Cuzick model (a risk assessment model) the patient's lifetime risk is 5.3% and her 10 year risk is 3.3%. According to the ACR, ACS, and NCCN guidelines, an annual breast MRI exam along with mammogram is recommended if the patient's lifetime risk is 20% or greater. This exam was interpreted at Station ID: [id number]. NOTE: For mammograms, a report in lay terms will be sent to the patient. Approximately 15% of breast malignancies will not be visualized mammographically. In the management of a palpable breast mass, a negative mammogram must not discourage biopsy of a clinically suspicious lesion. Electronically Signed By: Rosa cohen/nadeem:09/09/2024 09:46:44 letter sent: Additional Imaging Needed ACR BI-RADS Category 0: Incomplete: Need Additional Imaging Evaluation
== END ==
LOC: MAMMO 11:17
PROVIDERS: PCP Family Medicine; Referring Provider Family Medicine; Visit Provider Family Medicine
DX: Z12.31 Encounter for screening mammogram for malignant neoplasm of breast (principal); Z80.3 Family history of malignant neoplasm of breast; R92.333 Mammographic heterogeneous density, bilateral breasts
CPT/HCPCS: 77063; 77067

== ENCOUNTER → 2024-09-19 07:44 | Outpatient (CLI) | payer MEDICARE, OTHER, SELFPAY ==
[2024-09-19 08:31] LABS: Cholesterol 198 mg/dL (140-199); HDL Cholesterol 85 mg/dL (40-60); LDL Cholesterol Calculated 99 mg/dL (<100); Triglycerides 70 mg/dL (35-150)
== END ==
PROVIDERS: PCP Family Medicine; Referring Provider Internal Medicine Cardiovascular Disease; Visit Provider Internal Medicine Cardiovascular Disease
DX: I50.22 Chronic systolic (congestive) heart failure (principal); I73.9 Peripheral vascular disease, unspecified
CPT/HCPCS: 36415; 80061

== ENCOUNTER → 2024-09-24 09:23 | Outpatient (CLI) | payer MEDICARE, OTHER, SELFPAY ==
--- NOTE | 2024-09-24 | DI.MG.S_ITS ---
UNILATERAL RIGHT DIGITAL DIAGNOSTIC MAMMOGRAM 3D/2D WITH ADDITIONAL VIEWS: 09/24/2024 CLINICAL: Additional evaluation requested from prior study. Comparison is made to exams dated: 09/07/2024 mammogram, 09/06/2023 mammogram, 08/18/2022 mammogram, and 07/30/2021 mammogram - [facility]. The breasts are heterogeneously dense, which may obscure small masses (category c / 51-75% glandular tissue). There is a cluster of oval asymmetries with an obscured margin in the right breast at 10 o'clock posterior depth. This is seen in additional views. There also is possible architectural distortion in the right breast at 9 o'clock posterior depth. This finding may have been present on some prior mammograms and does not appear significantly changed. No other significant masses or calcifications are seen in the breast. IMPRESSION: INCOMPLETE: NEED ADDITIONAL IMAGING EVALUATION The cluster of oval asymmetries in the right breast at 10 o'clock posterior depth is indeterminate. An ultrasound is recommended. The possible architectural distortion in the right breast at 9 o'clock posterior depth is indeterminate. An ultrasound is recommended. Based on the Tyrer Cuzick model (a risk assessment model) the patient's lifetime risk is 5.3% and her 10 year risk is 3.3%. According to the ACR, ACS, and NCCN guidelines, an annual breast MRI exam along with mammogram is recommended if the patient's lifetime risk is 20% or greater. This exam was interpreted at Station ID: [id number]. NOTE: For mammograms, a report in lay terms will be sent to the patient. Approximately 15% of breast malignancies will not be visualized mammographically. In the management of a palpable breast mass, a negative mammogram must not discourage biopsy of a clinically suspicious lesion. Electronically Signed By: Landen Pérez M.D. ar/:09/25/2024 12:27:44 Entry: ka - 09/26/2024 10:29:35 letter sent: Additional Imaging Needed ACR BI-RADS Category 0: Incomplete: Need Additional Imaging Evaluation
--- NOTE | 2024-09-24 09:24 | DI.US.S_ITS ---
LIMITED ULTRASOUND OF RIGHT BREAST AND AXILLA: 09/24/2024 CLINICAL: Patient returns today to evaluate an asymmetry in the right breast. Comparison is made to exams dated: 09/24/2024 mammogram, 09/07/2024 mammogram, 09/06/2023 mammogram, 08/18/2022 mammogram, and 07/30/2021 mammogram - [facility]. Color flow and real-time ultrasound of the right breast 9-10 o'clock, and axilla regions were performed. Bowling scale images of the real-time examination were reviewed. There is a benign 0.8 cm oval cyst with a smooth internal wall in the right breast at 10 o'clock posterior depth 9 cm from the nipple. This oval cyst is anechoic with posterior acoustic enhancement. This correlates with mammography findings. Adjacent to this cyst, there are multiple additional cysts. IMPRESSION: PROBABLY BENIGN The 0.8 cm oval cyst in the right breast is consistent with a simple cyst and is benign. There is no abnormality seen in the right breast to correspond with the possible architectural distortion, which is considered probably benign. A follow-up right mammogram in 6 months is recommended to demonstrate stability. This exam was interpreted at Station ID: [id number]. Electronically Signed By: Landen Pérez M.D. ar/:09/25/2024 12:30:06 letter sent: Followup Recommended ACR BI-RADS Category 3: Probably Benign
== END ==
LOC: MAMMO 09:24
PROVIDERS: PCP Family Medicine; Referring Provider Family Medicine; Visit Provider Family Medicine
DX: R92.8 Other abnormal and inconclusive findings on diagnostic imaging of breast (principal); R92.333 Mammographic heterogeneous density, bilateral breasts; N60.01 Solitary cyst of right breast
CPT/HCPCS: 76642; 77065; G0279

== ENCOUNTER → 2024-10-08 15:59 | Outpatient (CLI) | payer MEDICARE, OTHER, SELFPAY ==
[2024-10-08 16:24] LABS: Reticulocyte Count, Percent 0.9 % (1.1-2.6)
[2024-10-08 16:34] LABS: Iron 87 ug/dL (37-170)
[2024-10-08 17:41] LABS: Vitamin B12 767 pg/mL (239-931)
== END ==
PROVIDERS: PCP Family Medicine; Referring Provider Internal Medicine Cardiovascular Disease; Visit Provider Internal Medicine Cardiovascular Disease
DX: D64.9 Anemia, unspecified (principal); Z79.01 Long term (current) use of anticoagulants; E03.9 Hypothyroidism, unspecified
CPT/HCPCS: 36415; 82607; 82746; 83540; 84443; 85045

== ENCOUNTER → 2025-03-31 11:56 | Outpatient (CLI) | payer MEDICARE, OTHER, SELFPAY ==
--- NOTE | 2025-03-31 11:57 | DI.MG.S_ITS ---
MM diagnostic mammo unilat RT: 03/31/2025. BI-RADS: 3 CLINICAL: 69-year old female for right diagnostic mammogram that is a follow-up to ultrasound, right on 09/24/2024. Tyrer-Cuzick lifetime risk of 3.9%. No personal or first-degree family history of breast cancer. Current reported family history of breast cancer: maternal aunt. The patient had a prior right breast biopsy. PRIOR EXAMS 09/24/2024, 09/07/2024, 09/06/2023, 08/18/2022, 11/14/2018. MAMMOGRAPHY TECHNIQUE: 2D and 3D (tomosynthesis) digital mammographic views obtained, with additional images as needed for full coverage. Current study was also evaluated with a Computer Aided Detection (CAD) system. DENSITY Right: C. The breast is heterogeneously dense, which may obscure small masses. MAMMOGRAPHY FINDINGS Right: MLO only, Upper, Posterior depth: Possible architectural distortion in the right breast is less conspicuous compared to the prior studies and may represent superimposition of fibroglandular tissue. IMPRESSION: Right: MLO only, Upper, Posterior depth * Probably Benign. RECOMMENDATIONS Right: MLO only, Upper, Posterior depth * Six month followup with diagnostic mammography. When the patient returns for short-term unilateral followup, a mammogram for the contralateral breast will also be due. COMMENTS: Findings and recommendations were conveyed to the patient during today's evaluation. OVERALL ASSESSMENT CATEGORY BI-RADS-3: Probably Benign. ELECTRONICALLY SIGNED: Kristine Acosta M.D. on 03/31/2025 at 03:51:23 PM PT Interpreting Station ID: [id number]
== END ==
LOC: MAMMO 11:56
PROVIDERS: PCP Family Medicine; Referring Provider Family Medicine; Visit Provider Family Medicine
DX: R92.8 Other abnormal and inconclusive findings on diagnostic imaging of breast (principal); R92.331 Mammographic heterogeneous density, right breast; Z80.3 Family history of malignant neoplasm of breast
CPT/HCPCS: 77065; G0279

== ENCOUNTER → 2025-06-12 13:42 | Outpatient (CLI) | payer MEDICARE, OTHER, SELFPAY ==
--- NOTE | 2025-06-12 13:43 | DI.ECHO.S_ITS ---
[facility] : : [id number] : : [place] : : [id number] : : Phone: [phone] Echocardiogram Report + + :Name: IDANIA HORTON Study Date: 06/12/2025 Height: 67 in : :[facility] ReadingLocation: Weight: 165 lb : : Gender: Female BSA: 1.9 m2 : :: 1955 Age: 69 yrs BP: 180/98 mmHg: :Reason For Study: NONRHEUMATIC TRICUSPID VALVE REGURGITATION : :Ordering Physician: JUAN, : :FREIDA Performed By: Richard Pickard : :Referring: FREIDA MARTINEZ : + + Interpretation Summary The left ventricle is normal in size. Left ventricular ejection fraction is estimated to be 65 +/- 5%. Previous LVEF 60 to 65%. The right ventricle is mildly dilated. The right ventricular systolic function is normal. There is a pacemaker lead in the right ventricle. New pacemaker There is severe biatrial enlargement. Both atria have remained unchanged in size since the prior echo exam. There is moderate mitral regurgitation. Compared to the prior echo study, there has been no significant change increase in the severity of mitral regurgitation. Previously mild MR The tricuspid annulus is dilated. There is moderate to severe tricuspid regurgitation. Compared to the prior echo exam, there has been no change in TR severity. The right ventricular systolic pressure is estimated to be at least 65 mmHg based on an estimated right atrial pressure of 3 mm Hg. In August 2024, PASP 53 mmHg. BP: 180/98 mmHg Compared to the prior echo study, there has been no change in the severity of mitral regurgitation. Procedure: A two-dimensional transthoracic echocardiogram with color flow and Doppler was performed. The study quality was technically good. Comparison is made with the echocardiogram of 09/06/2024. The patient has a paced rhythm. Left Ventricle: The left ventricle is normal in size. Left ventricular wall thickness is borderline increased. There is no ventricular septal defect visualized. Left ventricular ejection fraction is estimated to be 65 +/- 5%. Diastolic parameters suggest probable normal left ventricular diastolic function and normal filling pressures. Right Ventricle: The right ventricle is mildly dilated. There is a pacemaker lead in the right ventricle. The right ventricular systolic function is normal. Atria: There is severe biatrial enlargement. Both atria have remained unchanged in size since the prior echo exam. There is no Doppler evidence for an interatrial shunt. Mitral Valve: The mitral valve leaflets are slightly calcified. There is moderate mitral regurgitation. Compared to the prior echo study, there has been no change in the severity of mitral regurgitation. Aortic Valve: The aortic valve is trileaflet. The aortic valve opens well. There is no aortic valve stenosis. No aortic regurgitation is present. Tricuspid Valve: The tricuspid annulus is dilated. There is moderate to severe tricuspid regurgitation. Compared to the prior echo exam, there has been no change in TR severity. The right ventricular systolic pressure is estimated to be at least 65 mmHg based on an estimated right atrial pressure of 3 mm Hg. Pulmonic Valve: The pulmonic valve is not well seen, but is grossly normal. There is trace pulmonic regurgitation. Great Vessels: The aortic root is normal size. The dimensions of the ascending aorta are normal. The pulmonary artery is normal size. The IVC is of normal diameter and collapses greater than 50% with a sniff. This suggests a low right atrial pressure of 3 mm Hg. Pericardium/ Pleura There is no pericardial effusion. There is no pleural effusion. MMode/2D Measurements & Calculations LVIDd: 5.1 cm LVOT diam: 1.9 cm LVIDs: 3.4 cm Ao root diam: 3.1 cm FS: 32.8 % asc Aorta Diam: 3.0 cm EPSS: 0.58 cm IVSd: 1.1 cm LVPWd: 1.1 cm LV pineda. diameter/BSA (cm/m^2): 2.8 LV sys. diameter/BSA (cm/m^2): 1.9 LA A2 area: 32.9 cm2 RA long axis: 6.1 cm LA A4 area: 31.6 cm2 RA area: 23.9 cm2 LA length (vol): 7.3 cm RA vol: 79.2 ml LA vol: 121.0 ml RA : 42.5 ml/m2 LA vol index: 64.9 ml/m2 IVC diam: 1.7 cm RVD1 (basal): 4.3 cm RVD2 (mid): 3.1 cm TAPSE: 3.0 cm Doppler Measurements & Calculations Ao V2 max: 165.5 cm/sec LVOT Max Duke: 98.7 cm/sec Ao V2 mean: 96.4 cm/sec LV V1 max P.9 mmHg Ao max P.0 mmHg LV V1 VTI: 19.4 cm Ao mean P.4 mmHg JJ(I,D): 1.9 cm2 Ao V2 VTI: 28.3 cm JJ(V,D): 1.6 cm2 sev ratio: 0.69 JJ indexed to BSA (cm^2/m^2): 1.0 MV E max duke: 89.3 cm/sec TR max duke: 392.4 cm/sec MV A max duke: 26.3 cm/sec TR max P.6 mmHg MV E/A: 3.4 PA V2 max: 103.9 cm/sec Med Peak E' Duke: 9.7 cm/sec PA V2 mean: 64.2 cm/sec E/E' med: 9.2 PA mean P.9 mmHg Lat Peak E' Duke: 13.0 cm/sec PA pr(Accel): 68.7 mmHg E/E' lat: 6.9 E/e' average: 8.0 MV dec time: 0.18 sec SV(LVOT): 52.7 ml Reading Physician:06:04 PM
== END ==
PROVIDERS: PCP Family Medicine; Referring Provider Internal Medicine Cardiovascular Disease; Visit Provider Internal Medicine Cardiovascular Disease
DX: I08.1 Rheumatic disorders of both mitral and tricuspid valves (principal)
CPT/HCPCS: 93306